=== PATIENT | female | born 1965 | race Caucasian/White ===

== ENCOUNTER 2016-08-26 18:56 | Inpatient (IN) | payer SELFPAY ==
[~2016-08-26] VITALS: Ht 167.6 cm; Wt 65.0 kg
[~2016-08-26 18:56] MED LIST: CALCTAB98 PO; MAGN500T4 PO; SM F10002 PO; TAB-TAB PO; ZINC100T PO
[2016-08-26 19:02] VITALS: BP 161/100; PULSE 120; RESP 16; TEMP 98.8; O2SAT 95
[2016-08-26] MEDS ORDERED: SODIUM CHLOR 0.9% 1000 ML INJ 1,000 ML IV ONE ×2 (19:11→21:45)
[2016-08-26] MEDS ORDERED: SODIUM CHLORIDE 0.9% FLUSH 5 ML FLUSH IVF PRN (19:15)
--- NOTE | 2016-08-26 19:21 | PD ---
HPI Chief Complaint: Seizure Time Seen by Provider: 19:02 Travel History International Travel<30 days: No Contact w/Intl Traveler<30days: No Traveled to known affect area: No History of Present Illness HPI Patient's 50 years old. She was being driven home from work when she suddenly became unresponsive. Tonic activity/rigidity was observed by the otr refrigerated cdl truck driver who pulled over and checked the patient. EMS was activated. On scene, the patient demonstrated altered mentation. On scene she did not know the year. EMS notes tachycardia and hypertension on scene, about 125 and 160/100 upon arrival here. The patient denies similar prior episodes. She offers no specific complaints in the ER. The last thing she remembers is her friend saying "Mable Astorga. " No incontinence of stool or urine. She has no family history of epilepsy. No chest pain palpitation dizziness diaphoresis nausea or shortness of breath accompanied the event. She smokes one half to one pack of cigarettes per day. She drinks 2-3 beers daily. She denies any drug abuse. She denies past medical history surgical history. [facility] Past Medical History Medical History: Denies Significant Hx Diminished Hearing: No ?: Not Menopausal: Yes Past Surgical History Appendectomy: Yes Section: Yes (x2) Social History Alcohol Use: Yes (4-5 DRINKS PER DAY) Tobacco Use: Yes (1 PPD) Substance Use: No Allergies-Medications (Allergen,Severity, Reaction): Coded Allergies: No Known Allergies (Unverified , 08/26/16) Reported Meds & Prescriptions Reported Meds & Active Scripts Active No Active Prescriptions or Reported Medications Review of Systems Except as stated in HPI: all other systems reviewed are Neg General / Constitutional: No: Fever, Chills Cardiovascular: No: Chest Pain or Discomfort, Palpitations, Diaphoresis Respiratory: No: Shortness of Breath Genitourinary: No: Incontinence Physical Exam Narrative GENERAL: 50-year-old female pleasant and speaking full sentences well-nourished well-developed SKIN: Warm and dry. HEAD: Atraumatic. Normocephalic. No evidence skull base fracture. EYES: Pupils equal and round. No scleral icterus. No injection or drainage. ENT: No nasal bleeding or discharge. Mucous membranes pink and moist. Cerumen in the right ear. Left tympanic membrane pink with clear visualization of bony landmarks and no air-fluid level. NECK: Trachea midline. No JVD. CARDIOVASCULAR: Regular rate and rhythm. RESPIRATORY: No accessory muscle use. Clear to auscultation. Breath sounds equal bilaterally. GASTROINTESTINAL: Mildly prominent with tenderness or hepatomegaly. MUSCULOSKELETAL: Extremities without clubbing, cyanosis, or edema. No obvious deformities. NEUROLOGICAL: Speech is normal. No dysmetria. The patient was unable to state the month of the year. She could correctly state that the year is 2016. She knew there are 10 dimes in a dollar. CN grossly preserved. PSYCHIATRIC: Appropriate mood and affect; insight and judgment normal. Data Data Last Documented VS Vital Signs Date Time Temp Pulse Resp B/P Pulse Ox O2 Delivery O2 Flow Rate FiO2 08/26/16 19:38 18 95 Room Air 08/26/16 19:02 98.8 120 161/100 Tachycardia/htn observed Orders Complete Blood Count With Diff (08/26/16 19:11) Alcohol (Ethanol) (08/26/16 19:11) Drug Screen, Random Urine (08/26/16 19:11) Electrocardiogram (08/26/16 ) Ct Brain W/O Iv Contrast(Rout) (08/26/16 ) Ecg Monitoring (08/26/16 19:11) Iv Access Insert/Monitor (08/26/16 19:11) Oximetry (08/26/16 19:11) Comprehensive Metabolic Panel (08/26/16 19:11) Sodium Chlor 0.9% 1000 Ml Inj (Ns 1000 M (08/26/16 19:11) Sodium Chloride 0.9% Flush (Ns Flush) (08/26/16 19:15) Ua Includes Microscopic (08/26/16 19:11) Potassium Chloride (Kcl) (08/26/16 21:30) Lorazepam Inj (Ativan Inj) (08/26/16 21:45) Sodium Chlor 0.9% 1000 Ml Inj (Ns 1000 M (08/26/16 21:45) Admit Order (Ed Use Only) (08/26/16 22:10) Admit To Inpatient (08/26/16 ) Vital Signs (Adult) Q4H (08/26/16 22:12) Neuro Checks Q4H (08/26/16 22:12) Activity Oob With Assistance (08/26/16 22:12) Pigment Making Supervisor / Telemetry .CONTINUOUS (08/26/16 22:12) Diet Regular Basic (08/27/16 Breakfast) Sodium Chloride 0.9% Flush (Ns Flush) (08/26/16 22:15) Sodium Chloride 0.9% Flush (Ns Flush) (08/27/16 09:00) Comprehensive Metabolic Panel (08/27/16 06:00) Complete Blood Count With Diff (08/27/16 06:00) Case Management Consult (08/26/16 22:12) Scd Bilateral/Knee High KEVIN.BID (08/26/16 22:12) Naloxone Inj (Narcan Inj) (08/26/16 22:15) Inpatient Certification (08/26/16 ) Labs Laboratory Tests Test 08/26/16 08/26/16 19:10 20:30 White Blood Count 7.7 TH/MM3 Red Blood Count 3.92 MIL/MM3 Hemoglobin 12.5 GM/DL Hematocrit 36.2 % Mean Corpuscular Volume 92.4 FL Mean Corpuscular Hemoglobin 31.9 PG Mean Corpuscular Hemoglobin 34.5 % Concent Red Cell Distribution Width 14.4 % Platelet Count 85 TH/MM3 Mean Platelet Volume 10.8 FL Neutrophils (%) (Auto) 73.5 % Lymphocytes (%) (Auto) 13.0 % Monocytes (%) (Auto) 12.4 % Eosinophils (%) (Auto) 0.3 % Basophils (%) (Auto) 0.8 % Neutrophils # (Auto) 5.7 TH/MM3 Lymphocytes # (Auto) 1.0 TH/MM3 Monocytes # (Auto) 1.0 TH/MM3 Eosinophils # (Auto) 0.0 TH/MM3 Basophils # (Auto) 0.1 TH/MM3 CBC Comment AUTO DIFF Differential Comment AUTO DIFF CONFIRMED Platelet Estimate LOW Platelet Morphology Comment NORMAL Sodium Level 140 MEQ/L Potassium Level 2.5 MEQ/L Chloride Level 108 MEQ/L Carbon Dioxide Level 16.6 MEQ/L Anion Gap 15 MEQ/L Blood Urea Nitrogen 5 MG/DL Creatinine 0.94 MG/DL Estimat Glomerular Filtration 64 ML/MIN Rate Random Glucose 142 MG/DL Calcium Level 7.7 MG/DL Total Bilirubin 2.4 MG/DL Aspartate Amino Transf 122 U/L (AST/SGOT) Alanine Aminotransferase 36 U/L (ALT/SGPT) Alkaline Phosphatase 166 U/L Total Protein 7.3 GM/DL Albumin 3.0 GM/DL Ethyl Alcohol Level LESS THAN 3 MG/DL Urine Color YELLOW Urine Turbidity HAZY Urine pH 6.5 Urine Specific [place] 1.014 Urine Protein 30 mg/dL Urine Glucose (UA) NEG mg/dL Urine Ketones NEG mg/dL Urine Occult Blood SMALL Urine Nitrite NEG Urine Bilirubin NEG Urine Urobilinogen 2.0 MG/DL Urine Leukocyte Esterase TRACE Urine RBC 1 /hpf Urine WBC 3 /hpf Urine Squamous Epithelial 2 /hpf Cells Urine Bacteria OCC /hpf Urine Hyaline Casts 23 /lpf Urine Granular Casts 15 /lpf Urine Mucus FEW /lpf Microscopic Urinalysis Comment CULT NOT INDICATED Urine Opiates Screen NEG Urine Barbiturates Screen NEG Urine Amphetamines Screen NEG Urine Benzodiazepines Screen NEG Urine Cocaine Screen NEG Urine Cannabinoids Screen POS MDM Medical Decision Making Medical Screen Exam Complete: Yes Emergency Medical Condition: Yes Medical Record Reviewed: Yes Differential Diagnosis seizure, syncope, drug abuse, arrhythmia, electrolyte imbalance, intracranial mass/lesion Narrative Course CBC & BMP Diagram 08/26/16 19:[address] normal EKG reveals sinus tachycardia at 125 normal axis and intervals 60 mEq oral potassium given. 1 mg IV Ativan given along with a second liter of normal saline. Last drink was yesterday. The patient does appear mildly tremulous. Perhaps this may reflect alcohol withdrawal syndrome. d/w Dr Coley. Diagnosis Primary Impression: Seizure Additional Impressions: Hypokalemia Alcohol withdrawal Qualified Code: F10.239 - Alcohol withdrawal, with unspecified complication Admitting Information Admitting Physician Requests: Observation Scripts No Active Prescriptions or Reported Meds Abisai Chamorro MD Aug 26, 2016 19:21
[2016-08-26 19:38] VITALS: RESP 18; O2SAT 95
--- NOTE | 2016-08-26 19:44 | RADRPT ---
EXAM DATE/TIME: 08/26/2016 19:34 [place] COMPARISON: No previous studies available for comparison. INDICATIONS : Unrepsonsive today. RADIATION DOSE: 38.92 CTDIvol (mGy) MEDICAL HISTORY : None SURGICAL HISTORY : None. ENCOUNTER: Initial ACUITY: 1 day PAIN SCALE: 0/10 LOCATION: cranial TECHNIQUE: Multiple contiguous axial images were obtained of the head. Using automated exposure control and adj ustment of the mA and/or kV according to patient size, radiation dose was kept as low as reasonably a chievable to obtain optimal diagnostic quality images. FINDINGS: CEREBRUM: The ventricles are normal for age. No evidence of midline shift, mass lesion, hemorrhage or acute in farction. No extra-axial fluid collections are seen. POSTERIOR FOSSA: The cerebellum and brainstem are intact. The 4th ventricle is midline. The cerebellopontine angle i s unremarkable. EXTRACRANIAL: The visualized portion of the orbits is intact. SKULL: The calvaria is intact. No evidence of skull fracture. CONCLUSION: Negative noncontrast head CT. Jamie Lind MD on August 26, 2016 at 19:43 Board Certified Radiologist. This report was verified electronically.
[2016-08-26 20:14] LABS: AUTOMATED NEUTROPHIL # 5.7 TH/MM3 (1.8-7.7); BASOPHIL # 0.1 TH/MM3 (0-0.2); BASOPHIL % 0.8 % (0.0-2.0); EOSINOPHIL % 0.3 % (0.0-4.0); HEMATOCRIT 36.2 % (35.0-46.0); MEAN CELL VOLUME 92.4 FL (80.0-100.0); MEAN CORPUSCULAR HEMOGLOBIN 31.9 PG (27.0-34.0); MEAN CORPUSCULAR HGB CONC 34.5 % (32.0-36.0); MONO % 12.4 % (0.0-8.0); NEUT % 73.5 % (16.0-70.0); PLATELET COUNT 85 TH/MM3 (150-450); RED BLOOD COUNT 3.92 MIL/MM3 (4.00-5.30); RED CELL DISTRIBUTION WIDTH 14.4 % (11.6-17.2); WHITE BLOOD COUNT 7.7 TH/MM3 (4.0-11.0)
[2016-08-26 20:22] LABS: HEMO FLAGS AUTO DIFF
[2016-08-26 20:47] LABS: BACTERIA, URINE OCC /hpf; BLOOD, URINE SMALL (NEG); COMMENT (UR) CULT NOT INDICATED; GLUCOSE,URINE NEG (NEG); GRANULAR CAST, URINE 15 /lpf; HYALINE CAST, URINE 23 /lpf (RARE); KETONE, URINE NEG (NEG); MUCUS URINE FEW /lpf (OCC); NITRITE,URINE NEG (NEG); PH, URINE 6.5 (5.0-8.5); SQUAMOUS EPITHELIAL CELL URINE 2 /hpf (0-5); URINE COLOR YELLOW (YELLW/STRAW)
[2016-08-26 20:52] LABS: AMPHETAMINE, URINE NEG (NEG); BARBITURATES, URINE NEG (NEG); COCAINE, URINE NEG (NEG)
[2016-08-26 20:55] LABS: PLATELET ESTIMATE SMEAR LOW (NORMAL); PLATELET MORPHOLOGY NORMAL (NORMAL); SCAN/DIFF AUTO DIFF CONFIRMED
[2016-08-26 21:02] LABS: ALKALINE PHOSPHATASE 166 U/L (45-117); ALT (GPT) 36 U/L (10-53); ANION GAP 15 MEQ/L (5-15); AST (GOT) 122 U/L (15-37); BICARBONATE 16.6 MEQ/L (21.0-32.0); BLOOD UREA NITROGEN 5 MG/DL (7-18); CHLORIDE 108 MEQ/L (98-107); GLOMERULAR FILTRATION RATE 64 ML/MIN (>89); SODIUM (NA) 140 MEQ/L (136-145); TOTAL BILIRUBIN ADULT 2.4 MG/DL (0.2-1.0)
[2016-08-26 21:07] LABS: POTASSIUM 2.5 MEQ/L (3.5-5.1)
[2016-08-26] MEDS ORDERED: POTASSIUM CHLORIDE 20 MEQ CONTROLLED RELEASE TAB PO ONE (21:30)
[2016-08-26] MEDS ORDERED: LORazepam 2 MG/ML VIAL IV PUSH ONE (21:45)
[2016-08-26] MEDS ORDERED: LORazepam 2 MG/ML VIAL IV PUSH PRN (22:15)
[2016-08-26] MEDS ORDERED: SODIUM CHLORIDE 0.9% FLUSH 5 ML FLUSH FLUSH PRN (22:15)
[2016-08-26] MEDS ORDERED: NALOXONE HCL 0.4 MG/ML AMP IV PRN (22:15)
[2016-08-26] MEDS ORDERED: chlordiazePOXIDE 25 MG CAP PO ONE (22:15)
[2016-08-26] MEDS ORDERED: THIAMINE HCL 100 MG TAB PO ONE (22:15)
--- NOTE | 2016-08-26 22:29 | EKG ---
Date Performed: 08/26/2016 Time Performed: 19:22:52 PTAGE: 50 years EKG: SINUS TACHYCARDIA ABNORMAL RHYTHM ECG NO PREVIOUS TRACING DOCTOR: Pierre Chamorro Interpretating Date/Time 08/26/2016 22:28:06
[2016-08-26 23:00] VITALS: BP 143/84; PULSE 101; RESP 16; O2SAT 95
[2016-08-26] MEDS: POTASSIUM CHLOR 20 MEQ PREMIX 100 ML IV SCH (23:08)
[2016-08-27 00:07] LABS: MAGNESIUM 1.1 MG/DL (1.5-2.5)
[2016-08-27 00:09] LABS: POTASSIUM 2.5 MEQ/L (3.5-5.1)
[2016-08-27 00:27] VITALS: BP 133/84; PULSE 101; RESP 20; TEMP 98; O2SAT 95
[2016-08-27] MEDS ORDERED: MAGNESIUM SULFATE 1 GM PREMIX 100 ML IV SCH (01:30)
[2016-08-27] MEDS: POTASSIUM CHLOR 20 MEQ PREMIX 100 ML IV SCH (01:43)
[2016-08-27 03:16] LABS: MAGNESIUM 1.4 MG/DL (1.5-2.5); POTASSIUM 3.5 MEQ/L (3.5-5.1)
--- NOTE | 2016-08-27 04:15 | HHI.HP ---
[facility]ician No Primary Care Physician Admission Diagnosis AMS, Poss Sz, HypoK, Poss EtOH WD Diagnoses: (1) Seizure (2) Alcohol withdrawal (3) Hypokalemia (4) Hypomagnesemia (5) Tobacco abuse (6) Alcohol abuse Chief Complaint: Seizure activity Travel History International Travel<30 Days: No Contact w/Intl Traveler <30 Da: No Traveled to Known Affected Are: No History of Present Illness Ms. Lisa is a 50 year-old female with no significant past medical history who was being driven home from work when she suddenly became unresponsive and had what looked like seizure activity to the national van truck driver of the car. EMS was alerted and the patient had altered mentation; did not know what year was. The patient reports that she normally drinks about 6-7 beers daily. She had not had a drink in 2 days prior to this episode. She denies any recent illness , dizziness, fever, fatigue, chest pain, shortness of breath, palpitations, abdominal pain, nausea, vomiting, diarrhea, black or tarry stool, hematuria, or dysuria. She denies hypertension, diabetes mellitus, heart problems, lung problems, liver or kidney problems, thyroid problems, seizures, cancers, problems with blood clots such as colon DVT, PE, or CVA. Head CT was normal. Urine toxicology positive for cannabinoids only. Blood alcohol was less than 3. Potassium was low at 2.5. Later a magnesium level was drawn which was also low at 1.1. LFTs were elevated with total bilirubin of 2.4 , AST of 122, and ALT 36. . Review of Systems Except as stated in HPI: all other systems reviewed are Neg Past Family Social History Past Medical History Tobacco abuse Alcohol abuse . Past Surgical History Appendectomy 2 . Reported Medications Reported Meds & Active Scripts Active No Active Prescriptions or Reported Medications . Allergies: Coded Allergies: No Known Allergies (Unverified , 08/26/16) Active Ordered Medications Current Medications Sodium Chloride (NS 1000 ml Inj) 1,000 ml @ 1,000 mls/hr Q1H ONCE IV Last administered on 08/26/16t 19:52; Start 08/26/16 at 19:11; Stop 08/26/16 at 20:10 ; Status DC IV Flush (NS Flush) 2 ml UNSCH PRN IVF FLUSH AFTER USING IV ACCESS Last administered on 08/26/16 21:51; Start 08/26/16 at 19:15; Stop 08/26/16 at 22:31 ; Status DC Potassium Chloride (KCl) 60 meq ONCE ONCE PO Last administered on 08/26/16 21 :50; Start 08/26/16 at 21:30; Stop 08/26/16 at 21:31; Status DC Lorazepam 1 mg 1 mg ONCE ONCE IV PUSH Last administered on 08/26/16 21:51; Start 08/26/16 at 21:45; Stop 08/26/16 at 21:46; Status DC Sodium Chloride (NS 1000 ml Inj) 1,000 ml @ 999 mls/hr BOLUS ONCE IV Last administered on 08/26/16 21:50; Start 08/26/16 at 21:45; Stop 08/26/16 at 22:45 ; Status DC IV Flush (NS Flush) 2 ml UNSCH PRN FLUSH FLUSH AFTER USING IV ACCESS; Start at 22:15 IV Flush (NS Flush) 2 ml BID FLUSH ; Start 08/27/16 at 09:00 Naloxone HCl (Narcan Inj) 0.4 mg UNSCH PRN IV SEE LABEL COMMENTS; Start at 22:15 Lorazepam (Ativan Inj) 1 mg Q2H PRN IV PUSH withdrawal symptoms/ seizures; Start 08/26/16 at 22:15 Chlordiazepoxide (Librium) 25 mg TID PO ; Start 08/27/16 at 09:00 Chlordiazepoxide (Librium) 25 mg ONCE ONCE PO Last administered on 08/26/16 23:07; Start 08/26/16 at 22:15; Stop 08/26/16 at 22:30; Status DC Thiamine HCl (Vitamin B1) 100 mg ONCE ONCE PO Last administered on 08/26/16 23:07; Start 08/26/16 at 22:15; Stop 08/26/16 at 22:30; Status DC Thiamine HCl 100 mg 100 mg DAILY PO ; Start 08/27/16 at 09:00 Potassium Chloride 100 ml @ 50 mls/hr Q2H IV Last administered on 08/27/16 01 :43; Start 08/26/16 at 22:30; Stop 08/27/16 at 02:29; Status DC Magnesium Sulfate/ Dextrose (Magnesium Sulfate 1 Gm Premix) 100 ml @ 100 mls/ hr Q1H IV Last administered on 08/27/16 04:05; Start 08/27/16 at 01:30; Stop 08/27/16 at 03:29; Status DC . Family History Two brothers with diabetes mellitus . Social History Tobacco: smokes 2/3 pack of cigarettes per day Alcohol: drinks 6-7 beers daily Illicit Drugs: denies . Physical Exam Vital Signs Vital Signs Date Time Temp Pulse Resp B/P Pulse Ox O2 Delivery O2 Flow Rate FiO2 08/27/16 00:27 98.0 101 20 133/84 95 08/26/16 23:00 101 16 143/84 95 Room Air 08/26/16 19:38 18 95 Room Air 08/26/16 19:02 98.8 120 16 161/100 95 Physical Exam GENERAL: This is a female patient who appears older than stated age, she is tremulous throughout visit. SKIN: No rashes, ecchymoses or lesions. Cool and dry. HEAD: Atraumatic. Normocephalic. EYES: No scleral icterus. No injection or drainage. ENT: Nose without bleeding, purulent drainage. NECK: Trachea midline. No JVD or lymphadenopathy. CARDIOVASCULAR: Regular rate and rhythm without murmurs, gallops, or rubs. RESPIRATORY: Clear to auscultation. Breath sounds equal bilaterally. No wheezes , rales, or rhonchi. GASTROINTESTINAL: Abdomen soft, non-tender, nondistended. No guarding. MUSCULOSKELETAL: Extremities without clubbing, cyanosis, or edema. No calf tenderness. NEUROLOGICAL: Awake and alert. Patient is tremulous throughout visit. Normal speech. . Laboratory Laboratory Tests Test 08/26/16 08/26/16 08/27/16 19:10 20:30 02:29 White Blood Count 7.7 Red Blood Count 3.92 Hemoglobin 12.5 Hematocrit 36.2 Mean Corpuscular Volume 92.4 Mean Corpuscular Hemoglobin 31.9 Mean Corpuscular Hemoglobin 34.5 Concent Red Cell Distribution Width 14.4 Platelet Count 85 Mean Platelet Volume 10.8 Neutrophils (%) (Auto) 73.5 Lymphocytes (%) (Auto) 13.0 Monocytes (%) (Auto) 12.4 Eosinophils (%) (Auto) 0.3 Basophils (%) (Auto) 0.8 Neutrophils # (Auto) 5.7 Lymphocytes # (Auto) 1.0 Monocytes # (Auto) 1.0 Eosinophils # (Auto) 0.0 Basophils # (Auto) 0.1 CBC Comment AUTO DIFF Differential Comment AUTO DIFF CONFIRMED Platelet Estimate LOW Platelet Morphology Comment NORMAL Sodium Level 140 Potassium Level 2.5 3.5 Chloride Level 108 Carbon Dioxide Level 16.6 Anion Gap 15 Blood Urea Nitrogen 5 Creatinine 0.94 Estimat Glomerular Filtration 64 Rate Random Glucose 142 Calcium Level 7.7 Total Bilirubin 2.4 Aspartate Amino Transf 122 (AST/SGOT) Alanine Aminotransferase 36 (ALT/SGPT) Alkaline Phosphatase 166 Total Protein 7.3 Albumin 3.0 Ethyl Alcohol Level LESS THAN 3 Magnesium Level 1.1 1.4 Urine Color YELLOW Urine Turbidity HAZY Urine pH 6.5 Urine Specific [place] 1.014 Urine Protein 30 Urine Glucose (UA) NEG Urine Ketones NEG Urine Occult Blood SMALL Urine Nitrite NEG Urine Bilirubin NEG Urine Urobilinogen 2.0 Urine Leukocyte Esterase TRACE Urine RBC 1 Urine WBC 3 Urine Squamous Epithelial 2 Cells Urine Bacteria OCC Urine Hyaline Casts 23 Urine Granular Casts 15 Urine Mucus FEW Microscopic Urinalysis Comment CULT NOT INDICATED Urine Opiates Screen NEG Urine Barbiturates Screen NEG Urine Amphetamines Screen NEG Urine Benzodiazepines Screen NEG Urine Cocaine Screen NEG Urine Cannabinoids Screen POS Result Diagram: 08/26/16 1910 08/27/16 0229 Imaging Last Impressions Head CT 08/26/16 0000 Signed Impressions: Service Date/Time: Friday, August 26, 2016 19:34 - CONCLUSION: Negative noncontrast head CT. Jamie Lind MD . Assessment and Plan Problem List: (1) Seizure ICD Code: R56.9 Status: Acute (2) Alcohol withdrawal ICD Code: F10.239 Status: Acute (3) Hypokalemia ICD Code: E87.6 Status: Acute (4) Hypomagnesemia ICD Code: E83.42 Status: Acute (5) Tobacco abuse ICD Code: Z72.0 Status: Chronic (6) Alcohol abuse ICD Code: F10.10 Status: Chronic Assessment and Plan Seizure activity suspect related to alcohol withdrawal - Neuro checks every 4 hours - Vital signs every 4 hours - Seizure precautions - Ativan 1 mg IV every 2 hours as needed for withdrawal symptoms and/or seizures Hypokalemia - Initial potassium 2.5 - Replaced P.O. and IV - Recheck potassium every 4 hours until normalized - Continuous cardiac telemetry to monitor for arrhythmias Hypomagnesemia - Initial magnesium 1.1 - Replaced IV - Recheck magnesium every 4 hours until normalized LFTs elevated - likely secondary to alcohol abuse - Recheck LFTs in a.m. - Expect these should return to normal while patient is in hospital Alcohol withdrawal - Thiamine 100 mg by mouth daily - Librium 25 mg 3 times a day - Ativan 1 mg IV every 2 hours as needed for withdrawal symptoms and/or seizures Alcohol abuse - Counseled regarding deleterious health consequences associated with alcohol abuse - Counseled regarding cessation and need to taper off alcohol, not stop abruptly without medical assistance Tobacco abuse - Counseled regarding deleterious health consequences associated with tobacco abuse - Counseled regarding cessation DVT prophylaxis - SCDs Written by Shila Cool, acting as scribe for Dr. Coley on 08/27/16 at 04:14. The documentation accurately reflects the work performed [id number] by me on at 0414 Discussed Condition With ER physician, patient, and RN Physician Certification 2 Midnight Certification Type: Admission for Inpatient Services Order for Inpatient Services The services are ordered in accordance with Medicare regulations or non- Medicare payer requirements, as applicable. In the case of services not specified as inpatient-only, they are appropriately provided as inpatient services in accordance with the 2-midnight benchmark. Estimated LOS (days): 3 days is the estimated time the patient will need to remain in the hospital, assuming treatment plan goals are met and no additional complications. Post-Hospital Plan: Not yet determined Problem Qualifiers (1) Alcohol withdrawal: Qualified Code: F10.239 - Alcohol withdrawal, with unspecified complication Shila Cool Aug 27, 2016 04:15 Garcia Coley MD Sep 03, 2016 08:43
[2016-08-27 04:52] VITALS: BP 120/66; PULSE 89; RESP 20; TEMP 97.6; O2SAT 95
[2016-08-27 07:33] VITALS: BP 125/92; PULSE 103; RESP 18; TEMP 98.9; O2SAT 97
[2016-08-27 08:01] LABS: AUTOMATED NEUTROPHIL # 3.6 TH/MM3 (1.8-7.7); BASOPHIL % 0.6 % (0.0-2.0); EOSINOPHIL % 0.5 % (0.0-4.0); HEMATOCRIT 33.5 % (35.0-46.0); LYMPHOCYTE # 1.6 TH/MM3 (1.0-4.8); MEAN CELL VOLUME 91.9 FL (80.0-100.0); MEAN CORPUSCULAR HEMOGLOBIN 31.3 PG (27.0-34.0); MEAN CORPUSCULAR HGB CONC 34.1 % (32.0-36.0); MONO % 11.8 % (0.0-8.0); NEUT % 60.1 % (16.0-70.0); PLATELET COUNT 59 TH/MM3 (150-450); RED BLOOD COUNT 3.64 MIL/MM3 (4.00-5.30); RED CELL DISTRIBUTION WIDTH 14.4 % (11.6-17.2); WHITE BLOOD COUNT 5.9 TH/MM3 (4.0-11.0)
[2016-08-27 08:05] LABS: HEMO FLAGS AUTO DIFF
[2016-08-27 08:46] LABS: PLATELET ESTIMATE SMEAR LOW (NORMAL); PLATELET MORPHOLOGY NORMAL (NORMAL); SCAN/DIFF AUTO DIFF CONFIRMED
[2016-08-27] MEDS ORDERED: THIAMINE HCL 100 MG TAB PO SCH (09:00)
[2016-08-27] MEDS ORDERED: SODIUM CHLORIDE 0.9% FLUSH 5 ML FLUSH FLUSH SCH (09:00)
[2016-08-27 09:30] VITALS: PULSE 88
[2016-08-27] MEDS: chlordiazePOXIDE 25 MG CAP PO SCH ×3 (09:58→17:22)
[2016-08-27 10:38] LABS: ALKALINE PHOSPHATASE 168 U/L (45-117); ALT (GPT) 39 U/L (10-53); ANION GAP 11 MEQ/L (5-15); AST (GOT) 131 U/L (15-37); BICARBONATE 20.3 MEQ/L (21.0-32.0); BLOOD UREA NITROGEN 6 MG/DL (7-18); CHLORIDE 105 MEQ/L (98-107); GLOMERULAR FILTRATION RATE 135 ML/MIN (>89); MAGNESIUM 2.2 MG/DL (1.5-2.5); POTASSIUM 3.5 MEQ/L (3.5-5.1); SODIUM (NA) 136 MEQ/L (136-145); TOTAL BILIRUBIN ADULT 2.4 MG/DL (0.2-1.0)
[2016-08-27] MEDS ORDERED: MAGNESIUM SULFATE 1 GM PREMIX 100 ML IV ONE (10:45)
--- NOTE | 2016-08-27 12:24 | HHI.PR ---
Subjective Remarks Follow up for seizure. The patient admits to drinking alcohol, 6-7 beers a day. Her last drink was on Wednesday 08/23 as she is trying to quit drinking. She started having tremors Wednesday-Wednesday, feeling occasionally nauseous and small episode of vomiting. She was then going home from work last night when she reportedly had a seizure per the test driver of the car. The patient does not recall exactly what happened. She's never had a seizure before. No further seizure activity overnight. She wants to go home. She plans to "never drink again". Objective Vitals Vital Signs Date Time Temp Pulse Resp B/P Pulse Ox O2 Delivery O2 Flow Rate FiO2 08/27/16 07:33 98.9 103 18 125/92 97 08/27/16 04:52 97.6 89 20 120/66 95 08/27/16 00:27 98.0 101 20 133/84 95 08/26/16 23:00 101 16 143/84 95 Room Air 08/26/16 19:38 18 95 Room Air 08/26/16 19:02 98.8 120 16 161/100 95 Result Diagram: 08/27/16 0742 08/27/16 0742 Imaging Last Impressions Head CT 08/26/16 0000 Signed Impressions: Service Date/Time: Friday, August 26, 2016 19:34 - CONCLUSION: Negative noncontrast head CT. Jamie Lind MD Objective Remarks GENERAL: Well-nourished, well-developed middle aged female patient in [facility]. SKIN: Warm and dry. No rash. HEAD: Normocephalic. Atraumatic. EYES: Pupils equal and round. No scleral icterus. No injection or drainage. ENT: No nasal bleeding or discharge. Mucous membranes pink and moist. NECK: Supple. Trachea midline. CARDIOVASCULAR: Regular rate and rhythm. S1, S2 noted. No murmur appreciated. RESPIRATORY: No accessory muscle use. Clear to auscultation. Breath sounds equal bilaterally. GASTROINTESTINAL: Abdomen soft, non-tender, nondistended. Normoactive bowel sounds x4. MUSCULOSKELETAL: No obvious deformities. Extremities without clubbing, cyanosis , or edema. NEUROLOGICAL: Awake and alert. No obvious cranial nerve deficits. Motor grossly within normal limits. Normal speech. PSYCHIATRIC: Appropriate mood and affect; insight and judgment normal. Medications and IVs Current Medications Medications (Trade) Dose Ordered Sig/Cedrick Route Start Time Stop Time Status Last Admin (NS Flush) 2 ml UNSCH PRN FLUSH 08/26/16 22:15 (NS Flush) 2 ml BID FLUSH 08/27/16 09:00 08/27/16 09:58 (Narcan Inj) 0.4 mg UNSCH PRN IV 08/26/16 22:15 (Ativan Inj) 1 mg Q2H PRN IV PUSH 08/26/16 22:15 08/27/16 04:18 (Librium) 25 mg TID PO 08/27/16 09:00 08/27/16 09:58 (Vitamin B1) 100 mg DAILY PO 08/27/16 09:00 08/27/16 09:00 A/P Problem List: (1) Seizure ICD Code: R56.9 Status: Acute (2) Alcohol withdrawal ICD Code: F10.239 Status: Acute (3) Hypokalemia ICD Code: E87.6 Status: Acute (4) Hypomagnesemia ICD Code: E83.42 Status: Acute (5) Tobacco abuse ICD Code: Z72.0 Status: Chronic (6) Alcohol abuse ICD Code: F10.10 Status: Chronic Assessment and Plan 50-year-old female with hx of alcohol abuse, presents with seizure activity Seizure activity, suspect related to alcohol withdrawal and electrolyte abnormalities - Continue Seizure precautions, Neuro checks, Vital signs - Ativan 1 mg IV every 2 hours as needed for withdrawal symptoms and/or seizures - Check EEG - Consult neurology - Check CPK Hypokalemia - Initial potassium 2.5 - Replaced P.O. and IV - Continuous cardiac telemetry to monitor for arrhythmias - Repeat K improving, currently K 3.3, give additional po replacement Hypomagnesemia - Initial magnesium 1.1 - Replaced IV Mag Sulfate - Repeat mag 2.0, resolved LFTs elevated - likely secondary to alcohol abuse - Repeat LFTs elevated but stable - Liver U/S showed liver morphology and echotexture suggestive of cirrhosis; decreased blood flow in the main portal vein which may be related to portal hypertension; gallbladder filled with stones and sludge, However, no ultrasound findings are present to suggest acute cholecystitis. - Check hepatitis panel - Needs f/up with gastroenterology Alcohol withdrawal - Continue Thiamine 100 mg by mouth daily - Continue Librium 25 mg 3 times a day with plan to taper - Ativan 1 mg IV every 2 hours as needed for withdrawal symptoms and/or seizures Alcohol abuse - Counseled regarding deleterious health consequences associated with alcohol abuse - Counseled regarding cessation and need to taper off alcohol, not stop abruptly without medical assistance - Patient plans to "never drink again" Tobacco abuse - Counseled regarding deleterious health consequences associated with tobacco abuse - Counseled regarding cessation DVT prophylaxis - SCDs Written by Micaela Moreno, acting as scribe for Dr. Love on 08/27/16 at 12:22. Discharge Planning Possible discharge tomorrow. Attending Statement The documentation accurately reflects the work performed [id number] by me, Dr. Love on 08/27/16 at 12:22. Problem Qualifiers (1) Alcohol withdrawal: Qualified Code: F10.239 - Alcohol withdrawal, with unspecified complication Micaela Moreno PA-C Aug 27, 2016 12:24 Warner Love MD Aug 28, 2016 08:58
--- NOTE | 2016-08-27 12:42 | RADRPT ---
EXAM DATE/TIME: 08/27/2016 11:14 [facility] COMPARISON: No previous studies available for comparison. INDICATIONS : Elevated labs. MEDICAL HISTORY : Hypertension. Alcohol abuse. Seizures. Cardiac disorder. Hypokalemia. Hypomagnesemia. SURGICAL HISTORY : Appendectomy. section. ENCOUNTER: Initial ACUITY: 1 day PAIN SCORE: 0/10 LOCATION: Right upper quadrant MEASUREMENTS: LIVER: 18.5 cm length COMMON DUCT: Non-visualized RIGHT KIDNEY: 11.4 x 5.4 x 3.5 cm SPLEEN: 12.9 cm cm length FINDINGS: LIVER: Course and echotexture with mildly nodular contour without focal lesion or ductal dilatation. Main p ortal vein appears patent but with decreased blood flow and possible retrograde blood flow at times. No ascites is visualized. COMMON DUCT: No intraluminal mass or stone visualized. GALLBLADDER: Gallbladder is not fully distended but contains stones and sludge. Sonographic Lopes sign is negativ e. There is no pericholecystic fluid. PANCREAS: The visualized portions are within normal limits. RIGHT KIDNEY: No hydronephrosis, stone or mass. SPLEEN: No focal lesion. CONCLUSION: 1. Liver demonstrates a morphology and echotexture suggestive of cirrhosis. 2. There is decreased blood flow in the main portal vein which may be related to portal hypertension. 3. The gallbladder is filled with stones and sludge. However, no ultrasound findings are present to s uggest acute cholecystitis. Jamie Solares MD on August 27, 2016 at 12:36 Board Certified Radiologist. This report was verified electronically.
[2016-08-27 12:43] LABS: POTASSIUM 3.3 MEQ/L (3.5-5.1)
[2016-08-27] MEDS ORDERED: POTASSIUM CHLORIDE 20 MEQ CONTROLLED RELEASE TAB PO ONE (13:15)
[2016-08-27 14:10] LABS: INTERNATIONAL NORMALIZED RATIO 1.7 RATIO; PROTHROMBIN TIME - PATIENT 18.8 SEC (9.8-11.6)
[2016-08-27 14:22] LABS: MAGNESIUM 1.9 MG/DL (1.5-2.5); POTASSIUM 3.6 MEQ/L (3.5-5.1)
--- NOTE | 2016-08-27 15:34 | MG ---
cc: ESTRELLA AVALOS M.D. Lab No: [id number] Date: Age: 50 Sex: F Race: REFERRING PHYSICIAN: Usama. ROOM: H96. With hyperventilation and photic. Fair effort. Awake. CT negative. New-onset seizure. The patient suddenly became unresponsive. Blood pressure 160/100. A 50-year-old woman with history of ethanol, caffeine and tobacco use. Hypertension. MEDICATIONS: Librium, thiamine, Ativan given on this date. DESCRIPTION OF RECORD: The patient has an overall background rhythm of 8 to 8.5 hertz, 20 to 40 microvolts. Overall symmetrical background. There is quite a bit of movement artifact unfortunately. Eye movement leads coming off. No epileptic discharge is seen. Hyperventilation was then performed. There is more artifact but no attenuation. IMPRESSION: Overall normal EEG despite artifact. No epileptiform features were seen. Clinical correlation. MD ROBIN Fitch/JOSEPH /2:59 PM /3:21 PM
[2016-08-27] MEDS ORDERED: SERTRALINE HCL 50 MG TAB PO SCH (16:00)
[2016-08-27 16:02] VITALS: BP 132/65; PULSE 68; RESP 18; O2SAT 95
--- NOTE | 2016-08-27 16:30 | MB ---
cc: CASSIDANNY DATE OF CONSULTATION: 08/27/2016 HISTORY OF PRESENT ILLNESS A 50-year-old right-handed woman with a history of anxiety, depression, alcoholism, drinks over seven drinks of whiskey a day and is a smoker. She lives with her and then she was coming home from work, talking to her friend and she had what evidently was a grand mal seizure and thus admitted to the hospital. She did have a little bit of a tongue bite with this seizure but never prior. REVIEW OF SYSTEMS Denies any headache, hypertension, diabetes, hypercholesterolemia, IL, CABG, cardiac arrhythmia, renal, hepatic or pulmonary disease, thyroid disease, lupus, ulcer, cancer, seizure or stroke. She has not woken up and wet the bed. No odd smells, tastes or haroon vu. SOCIAL HISTORY She is a smoker, heavy drinker as noted. Lives with her . FAMILY HISTORY Negative for cancer, seizure, stroke. She works in housekeeping. MEDICATION No medicines. ALLERGIES NO KNOWN DRUG ALLERGIES. PHYSICAL EXAMINATION VITAL SIGNS: On exam she has been in sinus rhythm, afebrile, 103, 18, 125/92 to 161/100. NECK: There were no carotid bruits. HEART: Regular rhythm. I do not detect a murmur. Pupils are equal, visual mccormack are full. Extraocular movements intact without nystagmus. Face is symmetric with normal sensation. Tongue was midline. There is no drift. She had normal strength in upper and lower extremities bilaterally. DTRs are 2+ symmetric throughout. Toes are downgoing bilaterally. Pinprick is intact throughout. She is not ataxic on aecrhh-of-azku. Speech is fluent, not aphasic. LABORATORY DATA Urine drug screen positive for marijuana only. Alcohol level was less than 3. UA was negative. Basic metabolic profile, initial potassium was low at 2.5 otherwise BMP is normal. LFT AST was 122 otherwise normal. Albumin 3.0. Coags, INR was 1.7, platelet count is 59,000. IMAGING STUDIES Liver ultrasound suggesting cirrhosis, possible portal hypertension. CAT scan of the brain was normal. She was given some thiamine. EEG was performed and that was normal. IMPRESSION Likely alcohol related seizures. I do want to check an MRI of the brain, however, and a B12 level and her thyroid. If MRI of the brain is negative she could be discharged. I told her she needs to taper off of alcohol. She does have anxiety, depression, we could treat her with some Zoloft for that and that may help her get off the alcohol. MD YARA Meyer/KESHA /3:53 PM /4:04 PM
[2016-08-27 17:42] LABS: CKMB 9.2 NG/ML (0.5-3.6)
--- NOTE | 2016-09-21 21:32 | PD.AMA ---
Against Medical Advice Note Diagnosis: (1) Hypokalemia (2) Hypomagnesemia (3) Seizure (4) Tobacco abuse (5) Alcohol withdrawal (6) Alcohol abuse Discharge Disposition: Against Medical Advice Pt Condition on Discharge: Good Recommended Treatment Course recommend patient seek medical treatment as well as alcohol cessation counseling. AMA Statement Patient Christina Lisa has decided to leave the hospital against medical advice. This patient has the capacity to refuse care and understands the risks of leaving, including permanent disability and/or , and has had an opportunity to ask questions about her condition. The patient has been informed that she may return for care at any time, and follow up has been arranged/ advised. Warner Love MD Sep 21, 2016 21:32
== END 2016-08-27 18:48 | disposition home or self-care (01) | DRG 101 ==
LOC: NEPC 18:56 → NEDH 22:13 → OBSVTOIN 22:13 → NEPHCDU 08-27 00:23
PROVIDERS: ADMIT Internal Medicine; ATTEND Internal Medicine
DX: G40.409 Other generalized epilepsy and epileptic syndromes, not intractable, without status epilepticus (principal); E83.42 Hypomagnesemia; F10.239 Alcohol dependence with withdrawal, unspecified; E87.6 Hypokalemia; F17.210 Nicotine dependence, cigarettes, uncomplicated; F41.9 Anxiety disorder, unspecified; F32.9 Major depressive disorder, single episode, unspecified
CPT/HCPCS: 70450; 76705; 80053; 80074; 80307; 80320; 81001; 82550; 82552; 82607; 83735; 84132; 84443; 84702; 85025; 85610; 85652; 93005; 95819; 96361; 96374; J2060; J3475; J3480; J7030

== ENCOUNTER 2017-02-01 17:27 | Inpatient (IN) | payer SELFPAY ==
[~2017-02-01] VITALS: Ht 165.1 cm; Wt 68.0 kg
[2017-02-01] VITALS (22 sets, daily range): BP systolic 63–143; BP diastolic 26–86; PULSE 96–110; RESP 22–28; TEMP 97.4–97.5; O2SAT 90–99
--- NOTE | 2017-02-01 17:38 | PD ---
HPI Chief Complaint: SYNCOPE Time Seen by Provider: 17:31 Travel History International Travel<30 days: No Contact w/Intl Traveler<30days: No Traveled to known affect area: No History of Present Illness HPI EMS PICKED UP PATIENT FROM PRIVATE RESIDENCE WHERE HER ROOMMATES STATED SHE COLLAPSED TO GROUND AFTER STANDING AND THAT HER BODY "SHOOK LIKE A SEIZURE". EMS FOUND HER HYPOTENSIVE IN 60'S SBP, AND GLUCOSE 37 WITH BGL, GIVEN D50 IV AND IVF. PFSH Past Medical History Cancer: No Cardiovascular Problems: Yes Diminished Hearing: No Endocrine: No Musculoskeletal: No Neurologic: Yes Psychiatric: No Respiratory: No Seizures: Yes (new onset) Menopausal: Yes Past Surgical History Abdominal Surgery: Yes Appendectomy: Yes Section: Yes (x2) Gynecologic Surgery: Yes Social History Alcohol Use: Yes (4-5 DRINKS PER DAY) Tobacco Use: Yes (1 PPD) Substance Use: No Allergies-Medications (Allergen,Severity, Reaction): Coded Allergies: No Known Allergies (Unverified , 02/01/17) Reported Meds & Prescriptions Reported Meds & Active Scripts Active No Active Prescriptions or Reported Medications Review of Systems ROS Limitations: Clinical Condition Except as stated in HPI: all other systems reviewed are Neg Physical Exam Narrative GENERAL: SKIN: Warm and dry. JAUNDICED SKIN THROUGHOUT HEAD: Atraumatic. Normocephalic. EYES: Pupils equal and round. POSITIVE scleral icterus. No injection or drainage. ENT: No nasal bleeding or discharge. Mucous membranes pink and moist. NECK: Trachea midline. No JVD. CARDIOVASCULAR: Regular rate and rhythm. RESPIRATORY: No accessory muscle use. Clear to auscultation. Breath sounds equal bilaterally. GASTROINTESTINAL: Abdomen soft, non-tender, DISTENDED ABD WITH FLUID WAVE POS C/ W ASCITES MUSCULOSKELETAL: Extremities without clubbing, cyanosis, or edema. No obvious deformities. NEUROLOGICAL: Awake and alert. No obvious cranial nerve deficits. Motor grossly within normal limits. Five out of 5 muscle strength in the arms and legs. Normal speech. PSYCHIATRIC: Appropriate mood and affect; insight and judgment normal. Data Data Last Documented VS Vital Signs Date Time Temp Pulse Resp B/P Pulse Ox O2 Delivery O2 Flow Rate FiO2 02/01/17 20:54 107 28 93/52 94 Nasal Cannula 3 02/01/17 18:40 97.5 Orders Norepinephrine Inj (Levophed Inj) (02/01/17 17:42) Electrocardiogram (02/01/17 17:39) Complete Blood Count With Diff (02/01/17 17:39) Comprehensive Metabolic Panel (02/01/17 17:39) Ckmb (Isoenzyme) Profile (02/01/17 17:39) Troponin I (02/01/17 17:39) Prothrombin Time / Inr (Pt) (02/01/17 17:39) Act Partial Throm Time (Ptt) (02/01/17 17:39) Lipase (02/01/17 17:39) Urinalysis - C+S If Indicated (02/01/17 17:39) Chest, Single Ap (02/01/17 17:39) Ct Brain W/O Iv Contrast(Rout) (02/01/17 17:39) Iv Access Insert/Monitor (02/01/17 17:39) Ecg Monitoring (02/01/17 17:39) Oximetry (02/01/17 17:39) Blood Glucose (02/01/17 17:39) Urinary Catheter Insert/Apply (02/01/17 17:39) Drug Screen, Random Urine (02/01/17 17:39) Alcohol (Ethanol) (02/01/17 17:39) Salicylates (Aspirin) (02/01/17 17:39) Tylenol (Acetaminophen) (02/01/17 17:39) Lactic Acid Sepsis Protocol (02/01/17 17:39) Blood Culture (02/01/17 17:39) Sodium Chlor 0.9% 1000 Ml Inj (Ns 1000 M (02/01/17 17:39) Sodium Chlor 0.9% 1000 Ml Inj (Ns 1000 M (02/01/17 17:39) Norepinephrine-Dextrose Drip (Levophed-D (02/01/17 17:45) Dextrose 10% Inj (D10w Inj) (02/01/17 18:15) CKMB (02/01/17 17:38) CKMB% (02/01/17 17:38) Calcium Gluconate Inj (Calcium Gluconate (02/01/17 18:30) ^ Infusion (02/01/17 ) Dopamine Inj Premix (Dopamine Inj Premix (02/01/17 19:30) Terbutaline Inj (Brethine Inj) (02/01/17 19:30) Admit Order (Ed Use Only) (02/01/17 20:57) Labs Laboratory Tests Test 02/01/17 02/01/17 02/01/17 02/01/17 17:38 19:01 20:48 20:50 Prothrombin Time 36.3 SEC Prothromb Time International 3.1 RATIO Ratio Activated Partial 65.0 SEC Thromboplast Time Sodium Level 137 MEQ/L Potassium Level 5.5 MEQ/L Chloride Level 106 MEQ/L Carbon Dioxide Level 6.3 MEQ/L Anion Gap 25 MEQ/L Blood Urea Nitrogen 16 MG/DL Creatinine 2.00 MG/DL Estimat Glomerular Filtration 26 ML/MIN Rate Random Glucose 82 MG/DL Lactic Acid Level 15.6 mmol/L 16.1 mmol/L Calcium Level 6.0 MG/DL Protein Corrected Calcium 7.0 MG/DL Total Bilirubin 6.2 MG/DL Aspartate Amino Transf 191 U/L (AST/SGOT) Alanine Aminotransferase 31 U/L (ALT/SGPT) Alkaline Phosphatase 112 U/L Total Creatine Kinase 1726 U/L Creatine Kinase MB 29.1 NG/ML Creatine Kinase MB % 1.7 % Troponin I 0.02 NG/ML Total Protein 5.0 GM/DL Albumin 1.3 GM/DL Lipase 136 U/L Acetaminophen Level LESS THAN 2.0 MCG/ML Ethyl Alcohol Level LESS THAN 3 MG/DL White Blood Count 14.6 TH/MM3 Red Blood Count 2.21 MIL/MM3 Hemoglobin 7.1 GM/DL Hematocrit 21.6 % Mean Corpuscular Volume 97.8 FL Mean Corpuscular Hemoglobin 32.0 PG Mean Corpuscular Hemoglobin 32.7 % Concent Red Cell Distribution Width 18.2 % Platelet Count 91 TH/MM3 Mean Platelet Volume 10.2 FL Neutrophils (%) (Auto) 79.3 % Lymphocytes (%) (Auto) 16.6 % Monocytes (%) (Auto) 2.6 % Eosinophils (%) (Auto) 0.7 % Basophils (%) (Auto) 0.8 % Neutrophils # (Auto) 11.6 TH/MM3 Lymphocytes # (Auto) 2.4 TH/MM3 Monocytes # (Auto) 0.4 TH/MM3 Eosinophils # (Auto) 0.1 TH/MM3 Basophils # (Auto) 0.1 TH/MM3 CBC Comment AUTO DIFF Differential Total Cells 100 Counted Neutrophils % (Manual) 64 % Band Neutrophils % 10 % Lymphocytes % 11 % Monocytes % 5 % Eosinophils % 1 % Basophils % 1 % Neutrophils # (Manual) 12.0 TH/MM3 Metamyelocytes 7 % Myelocytes 1 % Differential Comment FINAL DIFF MANUAL Toxic Vacuolation PRESENT Platelet Estimate NORMAL Platelet Morphology Comment ENLARGED Urine Color YELLOW Urine Turbidity CLOUDY Urine pH 5.5 Urine Specific [place] 1.010 Urine Protein 100 mg/dL Urine Glucose (UA) NEG mg/dL Urine Ketones NEG mg/dL Urine Occult Blood LARGE Urine Nitrite NEG Urine Bilirubin NEG Urine Leukocyte Esterase NEG Urine RBC 20-24 /hpf Urine WBC 6-8 /hpf Urine Squamous Epithelial 0-5 /hpf Cells Urine Renal Epithelial Cells 0-5 /hpf Urine Bacteria MOD /hpf Urine Hyaline Casts 0-2 /lpf Urine Fine Granular Casts 3-5 /lpf Microscopic Urinalysis Comment CULTURE INDICATED Urine Opiates Screen NEG Urine Barbiturates Screen NEG Urine Amphetamines Screen NEG Urine Benzodiazepines Screen NEG Urine Cocaine Screen NEG Urine Cannabinoids Screen NEG MDM Medical Decision Making Medical Screen Exam Complete: Yes Emergency Medical Condition: Yes Medical Record Reviewed: Yes Differential Diagnosis AMS V HEPATIC ENCEPHALOPATHY V POSTICTAL SEIZURE V WITHDRAWAL SEIZURE V ICH V HYPOGLYCEMIC Narrative Course PATIENT IMMEDIATELY HAD 2 IV PLACED, IVF GIVEN, AND ORDERED PRESSORS TO MAINTAIN BP. FULL WORKUP TO CONTINUE...PATIENT ENDED UP REQUIRING CENTRAL LINE PLACEMENT BECAUSE OF PLETHORA OF TREATMENT ADJUNCTS NEEDED (CALCIUM IV REPLACEMENT, DEXTROSE REPLACEMENT, LEVOPHED AND DOPAMINE PRESSOR THERAPY, 2L NS BOLUS GIVEN, CEFEPIME AND VANCOX1 ABX DOSING WELL) NOW SBP IS IN 100 SYTOLIC IMPROVED FROM 70'S, URINE OUTPUT IS FINALLY BEEN NOTED ON SALCEDO 2 HRS AFTER SALCEDO PLACEMENT.....CASE D/W DR BEE BLOCK AND CASE MAKER [place] [facility] [place]. PATIENT CONTINUES TO GUARD HER AIRWAY AND THUS NO NEED TO INTUBATE AT THIS POINT BUT PATIENT IS IN CRITICAL CONDITION AND HAS VERY POOR RESERVES DUE TO ENDSTAGE CIRRHOSIS...AT TIME EMS CAME AND TRANSFERRED PATIENT, UNABLE TO GET BP AND MORE AGONAL RESPIRATIONS, STARTED PREPARING FOR POSSIBLE CODE WHEN PATIENT BECAME PULSELESS...CPR STARTED, INTUBATED BY ME (DURING INTUBATION HEMATEMESIS OCCURRED USED SUCTION PRIOR TO INTUBATION), GIVEN ACLS PROTOCOL AND GOT ROSC BUT NOW PATIENT WAS MORIBUND AND NOT RESPONSIVE OR REACTIVE PUPILS, ALSO BECAME MOTTLED ADVISED OF RESULTS, HE WISHES FOR FULL CODE TO CONTINUE. MAX DOPA, MAX LEVOPHED, AC VENT SETTINGS. GCS 3T, AND STARTED ON EPI DRIP Critical Care Narrative CRITICAL CARE NOTE: With evaluation of the patient, labs, EKG, receipt of radiologic studies, administration of medications, reevaluation the patient and discussion of the patient with the admitting physicians, the total critical care time was [90] minutes. Time to perform other separately billable procedures was not included in the critical care time. Procedures Procedure Narrative The patient was put in optimal position for the procedure. PATIENT CODING, NO RSI NEEDED. The patient was intubated with a [7.5] cuffed endotracheal tube. Tube placement was confirmed by visualization of the tube and balloon passing through the cords, capnometry. Breath sounds were equal and well aerated bilaterally postintubation. No breath sounds over stomach. After the risks and benefits were discussed the following procedure was performed: CENTRAL VENOUS LINE: The site was prepped with Betadine and sterilely draped. It was infiltrated with 1% lidocaine plain. The deep vein was cannulated using normal Seldinger technique. A central line was placed in the [RIGHT FEMORAL] site and secured with simple interrupted suture. The site was sterilely dressed. The patient tolerated the procedure well. Sepsis Criteria SIRS Criteria (2 or more): WBC > 90161, < 4000 or > 10% bands Severe Sepsis (+one): Lactate >2, Acute Oliguria/Renal Failure Septic Shock Criteria: Unresponsive to 30ml/kg fluid bolus, Lactic acid >=4 Physician Communication Physician Communication DR BEE BLOCK AND CASE MAKER TO FOLLOW AND PROVIDE FURTHER CARE Diagnosis Primary Impression: SYNCOPE Additional Impressions: SEPTIC SHOCK HYPOGLYCEMIA HYPOCALCEMIA S/P CARDIAC AR Admitting Information Admitting Physician Requests: Admit Scripts No Active Prescriptions or Reported Meds Condition: Critical Marvel Solorio MD Feb 01, 2017 17:38
[2017-02-01] MEDS ORDERED: SODIUM CHLOR 0.9% 1000 ML INJ 800 ML IV ONE (17:39)
[2017-02-01] MEDS ORDERED: SODIUM CHLOR 0.9% 1000 ML INJ 1,000 ML IV ONE (17:39)
[2017-02-01] MEDS ORDERED: NOREPINEPHRINE 4 MG/4 ML AMP ONE (17:42)
--- NOTE | 2017-02-01 18:02 | RADRPT ---
EXAM DATE/TIME: 02/01/2017 17:51 [facility] COMPARISON: No previous studies available for comparison. INDICATIONS : Shortness of breath. MEDICAL HISTORY : Hypertension. SURGICAL HISTORY : None. ENCOUNTER: Initial ACUITY: 1 day PAIN SCORE: 0/10 LOCATION: Bilateral chest FINDINGS: There is slight perivascular pulmonary edema. Focal consolidation is not seen. Heart and mediastinum are unremarkable for technique. CONCLUSION: Slight perivascular pulmonary edema. Charbel Cast MD on February 01, 2017 at 18:00 Board Certified Radiologist. This report was verified electronically.
[2017-02-01 18:05] LABS: CHLORIDE 106 MEQ/L (98-107); POTASSIUM 5.5 MEQ/L (3.5-5.1); SODIUM (NA) 137 MEQ/L (136-145)
[2017-02-01 18:11] LABS: INTERNATIONAL NORMALIZED RATIO 3.1 RATIO; PROTHROMBIN TIME - PATIENT 36.3 SEC (9.8-11.6)
[2017-02-01 18:27] LABS: ALKALINE PHOSPHATASE 112 U/L (45-117); ALT (GPT) 31 U/L (10-53); ANION GAP 25 MEQ/L (5-15); AST (GOT) 191 U/L (15-37); BICARBONATE 6.3 MEQ/L (21.0-32.0); BLOOD UREA NITROGEN 16 MG/DL (7-18); CREATINE KINASE 1726 U/L (26-192); GLOMERULAR FILTRATION RATE 26 ML/MIN (>89); TOTAL BILIRUBIN ADULT 6.2 MG/DL (0.2-1.0)
[2017-02-01] MEDS ORDERED: CALCIUM GLUCONATE INJ 2 GM in DEXTROSE 5% IN WATER 100ML INJ 100 ML IV ONE ×2 (18:30)
[2017-02-01] MEDS: NOREPINEPHRINE-DEXTROSE DRIP 250 ML IV SCH ×3 (18:43→22:52)
[2017-02-01] MEDS: DEXTROSE 10% INJ 1,000 ML IV SCH (18:43)
[2017-02-01 19:14] LABS: AUTOMATED NEUTROPHIL # 11.6 TH/MM3 (1.8-7.7); BASOPHIL # 0.1 TH/MM3 (0-0.2); BASOPHIL % 0.8 % (0.0-2.0); EOSINOPHIL # 0.1 TH/MM3 (0-0.4); EOSINOPHIL % 0.7 % (0.0-4.0); HEMATOCRIT 21.6 % (35.0-46.0); LYMPH % 16.6 % (9.0-44.0); LYMPHOCYTE # 2.4 TH/MM3 (1.0-4.8); MEAN CELL VOLUME 97.8 FL (80.0-100.0); MEAN CORPUSCULAR HGB CONC 32.7 % (32.0-36.0); MONO % 2.6 % (0.0-8.0); NEUT % 79.3 % (16.0-70.0); PLATELET COUNT 91 TH/MM3 (150-450); RED BLOOD COUNT 2.21 MIL/MM3 (4.00-5.30); RED CELL DISTRIBUTION WIDTH 18.2 % (11.6-17.2); WHITE BLOOD COUNT 14.6 TH/MM3 (4.0-11.0)
[2017-02-01 19:23] LABS: HEMO FLAGS AUTO DIFF
[2017-02-01 19:30] LABS: ACETAMINOPHEN LESS THAN 2.0 MCG/ML (10.0-30.0)
[2017-02-01] MEDS ORDERED: TERBUTALINE INJ 1 MG/ML AMP SQ PRN (19:30)
[2017-02-01 19:34] LABS: CKMB 29.1 NG/ML (0.5-3.6)
[2017-02-01 19:50] LABS: LACTIC ACID GHOST NOT REPORTABLE
[2017-02-01] MEDS: DOPamine INJ PREMIX 500 ML IV SCH (20:03)
[2017-02-01 20:05] LABS: BANDS 10 % (0-6); BASOPHILS 1 % (0-2); EOSINOPHILS 1 % (0-4); METAMYELOCYTES 7 % (0-1); MYELOCYTES 1 % (0-0); POLYS (SEG NEUTROPHILS) 64 % (16-70); TOXIC VACUOLATION PRESENT (NONE SEEN); WBC DIFF SAMPLE 100
[2017-02-01 20:06] LABS: PLATELET ESTIMATE SMEAR NORMAL (NORMAL); PLATELET MORPHOLOGY ENLARGED (NORMAL); SCAN/DIFF FINAL DIFF MANUAL
--- NOTE | 2017-02-01 20:12 | RADRPT ---
EXAM DATE/TIME: 02/01/2017 19:32 [facility] COMPARISON: CT BRAIN W/O CONTRAST, August 26, 2016, 19:34. INDICATIONS : Syncopal episode. RADIATION DOSE: 66.07 CTDIvol (mGy) MEDICAL HISTORY : Seizures. SURGICAL HISTORY : None. ENCOUNTER: Initial ACUITY: 1 day PAIN SCALE: 0/10 LOCATION: cranial TECHNIQUE: Multiple contiguous axial images were obtained of the head. Using automated exposure control and adj ustment of the mA and/or kV according to patient size, radiation dose was kept as low as reasonably a chievable to obtain optimal diagnostic quality images. DICOM format image data is available electro nically for review and comparison. FINDINGS: CEREBRUM: The ventricles are normal for age. No evidence of midline shift, mass lesion, hemorrhage or acute in farction. No extra-axial fluid collections are seen. POSTERIOR FOSSA: The cerebellum and brainstem are intact. The 4th ventricle is midline. The cerebellopontine angle i s unremarkable. EXTRACRANIAL: The visualized portion of the orbits is intact. SKULL: The calvaria is intact. No evidence of skull fracture. CONCLUSION: Negative noncontrast CT brain. Meet Martinez MD on February 01, 2017 at 20:10 Board Certified Radiologist. This report was verified electronically.
[2017-02-01 20:58] LABS: BLOOD, URINE LARGE (NEG); GLUCOSE,URINE NEG (NEG); KETONE, URINE NEG (NEG); NITRITE,URINE NEG (NEG); PH, URINE 5.5 (5.0-8.5)
[2017-02-01] MEDS ORDERED: VANCOMYCIN INJ 1,000 MG in SODIUM CHLOR 0.9% 250 ML INJ 250 ML IV STA (21:02)
[2017-02-01] MEDS ORDERED: CEFEPIME INJ 2,000 MG in SODIUM CHLORIDE 0.9% INJ 100 ML IV STA (21:02)
[2017-02-01 21:11] LABS: URINE COLOR YELLOW (YELLW/STRAW)
[2017-02-01 21:12] LABS: HYALINE CAST, URINE 0-2 /lpf (RARE); SQUAMOUS EPITHELIAL CELL URINE 0-5 /hpf (0-5)
[2017-02-01 21:14] LABS: BACTERIA, URINE MOD /hpf; COMMENT (UR) CULTURE INDICATED; CULTURE IF INDICATED CULTURE INDICATED; RENAL EPITHELIAL CELLS 0-5 /hpf
[2017-02-01 21:16] LABS: AMPHETAMINE, URINE NEG (NEG); BARBITURATES, URINE NEG (NEG)
[2017-02-01 21:17] LABS: COCAINE, URINE NEG (NEG)
[2017-02-02] VITALS (36 sets, daily range): BP systolic 60–89; BP diastolic 35–59; PULSE 0–130; RESP 16–24; TEMP 91.1–93; O2SAT 0–100
[2017-02-02 02:06] LABS: BLOOD GAS BASE EXCESS -25.8 mmol/L (-2-2); BLOOD GAS CARBOXYHEMOGLOBIN 0.4 % (0-4); BLOOD GAS HCO3 6 mmol/L (22-26); BLOOD GAS METHEMOGLOBIN 1.5 % (0-2); BLOOD GAS O2 HGB SATURATION 97 % (90-100); BLOOD GAS OXYGEN CONTENT 6.8 Vol % (12.0-20.0); BLOOD GAS PCO2 43 mmHG (38-42); BLOOD GAS PO2 353 mmHG (61-120); BLOOD GAS TOTAL HGB 4.3 G/DL (12.0-16.0); CRITICAL VALUE YES; DRAW SITE RT FEMORAL; FIO2 100 %; OXYGEN DEVICE VENTILATOR; TEMP CORR TO 98.6; VENT SETTINGS AC16/500/5PEEP
[2017-02-02 02:07] LABS: NUMBER OF ARTERIAL PUNCTURES 2
[2017-02-02 02:08] LABS: STAT YES
[2017-02-02] MEDS ORDERED: SODIUM CHLOR 0.9% 250 ML INJ 250 ML IV ONE (03:00)
[2017-02-02] MEDS ORDERED: SODIUM BICARBONATE 8.4% INJ 50 MEQ/50 ML SYR IV PUSH ONE ×9 (03:00→06:45)
[2017-02-02] MEDS: SODIUM BICARBONATE 8.4% INJ 150 MEQ in DEXTROSE 5% IN WATE 1000ML INJ 1,000 ML IV SCH ×4 (03:19→09:52)
--- NOTE | 2017-02-02 03:30 | RADRPT ---
EXAM DATE/TIME: 02/02/2017 03:16 [facility] COMPARISON: CT BRAIN W/O CONTRAST, February 01, 2017, 19:32. CHEST SINGLE AP, February 01, 2017, 17:51. INDICATIONS : Status post intubation. Syncopal episode earlier MEDICAL HISTORY : Hypertension. SURGICAL HISTORY : None. ENCOUNTER: Subsequent ACUITY: 1 day PAIN SCORE: Non-responsive. LOCATION: Bilateral chest FINDINGS: A single view of the chest demonstrates the lungs to be symmetrically aerated without evidence of mas s or effusion. There is new mild patchy opacity at the left lung base. The cardiomediastinal contour s are unremarkable. Osseous structures are intact. There has been interval placement of endotracheal tube with tip just above the level of the mimi. CONCLUSION: 1. Interval placement of endotracheal tube with the tip just above the mimi. 2. new mild patchy opacity at the left lung base. Francisco Lamb MD on February 02, 2017 at 3:26 Board Certified Radiologist. This report was verified electronically.
[2017-02-02] MEDS: EPINEPHrine (1:1000) INJ 2 MG in DEXTROSE 5% IN WATER INJ 248 ML IV SCH ×6 (03:32→10:43)
[2017-02-02] MEDS ORDERED: PROTHROMBIN COMPLEX CONC INJ 1,500 UNITS in SYRINGE/BAG 1 EA IV ONE (04:15)
[2017-02-02] MEDS ORDERED: CALCIUM GLUCONATE INJ 2 GM in DEXTROSE 5% IN WATER 100ML INJ 100 ML IV ONE ×2 (04:15)
[2017-02-02] MEDS: NOREPINEPHRINE-DEXTROSE DRIP 250 ML IV SCH ×3 (04:52→12:12)
[2017-02-02 05:33] LABS: BLOOD GAS BASE EXCESS -24.5 mmol/L (-2-2); BLOOD GAS CARBOXYHEMOGLOBIN 0.4 % (0-4); BLOOD GAS HCO3 7 mmol/L (22-26); BLOOD GAS METHEMOGLOBIN 1.6 % (0-2); BLOOD GAS O2 HGB SATURATION 93 % (90-100); BLOOD GAS OXYGEN CONTENT 9.3 Vol % (12.0-20.0); BLOOD GAS PCO2 44 mmHG (38-42); BLOOD GAS PO2 133 mmHG (61-120); BLOOD GAS TOTAL HGB 6.9 G/DL (12.0-16.0); TEMP CORR TO 98.6
[2017-02-02 05:34] LABS: CRITICAL VALUE YES; DRAW SITE ART LINE; FIO2 100 %; OXYGEN DEVICE VENTILATOR; STAT NO; VENT SETTINGS AC16/500/5PEEP
[2017-02-02 05:40] LABS: AUTOMATED NEUTROPHIL # 8.1 TH/MM3 (1.8-7.7); BASOPHIL % 0.3 % (0.0-2.0); EOSINOPHIL # 0.1 TH/MM3 (0-0.4); EOSINOPHIL % 0.8 % (0.0-4.0); LYMPH % 14.6 % (9.0-44.0); LYMPHOCYTE # 1.4 TH/MM3 (1.0-4.8); MEAN CELL VOLUME 98.8 FL (80.0-100.0); MEAN CORPUSCULAR HEMOGLOBIN 32.2 PG (27.0-34.0); MEAN CORPUSCULAR HGB CONC 32.5 % (32.0-36.0); MONO % 0.4 % (0.0-8.0); NEUT % 83.9 % (16.0-70.0); PLATELET COUNT 58 TH/MM3 (150-450); RED CELL DISTRIBUTION WIDTH 17.6 % (11.6-17.2); WHITE BLOOD COUNT 9.6 TH/MM3 (4.0-11.0)
[2017-02-02 05:56] LABS: HEMO FLAGS AUTO DIFF
[2017-02-02 05:57] LABS: HEMATOCRIT 21.7 % (35.0-46.0)
[2017-02-02 06:04] LABS: MAGNESIUM 3.8 MG/DL (1.5-2.5); TOTAL BILIRUBIN ADULT 5.6 MG/DL (0.2-1.0)
[2017-02-02 06:11] LABS: CALCIUM-PROTEIN CORRECTED 7.6 MG/DL (8.5-10.1); POTASSIUM 6.6 MEQ/L (3.5-5.1)
[2017-02-02] MEDS ORDERED: DEXTROSE 50% IN WATER 50 ML VIAL(D50) IV PUSH ONE (06:30)
[2017-02-02] MEDS ORDERED: PHYTONADIONE INJ 10 MG in SODIUM CHLORIDE 0.9% INJ 50 ML IV ONE (06:30)
[2017-02-02] MEDS ORDERED: BISACODYL 10 MG SUPP RECTAL PRN (06:30)
[2017-02-02] MEDS ORDERED: CALCIUM GLUCONATE INJ 1 GM in SODIUM CHLORIDE 0.9% INJ 100 ML IV ONE (06:30)
[2017-02-02] MEDS ORDERED: MISCELLANEOUS NURSING INFORMATION XX SCH (06:30)
[2017-02-02] MEDS ORDERED: LACTULOSE SYRUP 20 GM/30 ML CUP PO PRN (06:30)
[2017-02-02] MEDS ORDERED: MAGNESIUM HYDROXIDE SUSP 30 ML CUP PO PRN (06:30)
[2017-02-02] MEDS ORDERED: TERBUTALINE INJ 1 MG/ML AMP SQ PRN (06:30)
[2017-02-02] MEDS ORDERED: OCTREOTIDE INJ 50 MCG/ML AMP IV ONE (06:30)
[2017-02-02] MEDS ORDERED: HYDROCORTISONE SOD SUCCINATE 100 MG VIAL IV PUSH SCH (06:30)
[2017-02-02] MEDS ORDERED: SENNOSIDES 8.6 MG TAB PO PRN (06:30)
[2017-02-02] MEDS ORDERED: CHLORHEXIDINE GLUCONATE 2 % 1 PACK (2 CLOTHS) TOP PRN (06:30)
[2017-02-02] MEDS ORDERED: INSULIN HUMAN REGULAR 1,000 UNITS/10 ML VIAL IV PUSH ONE ×2 (06:30→10:15)
[2017-02-02] MEDS ORDERED: SODIUM POLYSTYRENE SULFONATE SUSP 15 GM/60 ML CUP PO ONE (06:30)
[2017-02-02 06:33] LABS: INTERNATIONAL NORMALIZED RATIO 1.8 RATIO; PROTHROMBIN TIME - PATIENT 20.6 SEC (9.8-11.6)
[2017-02-02 06:41] LABS: BANDS 27 % (0-6); BASOPHILS 1 % (0-2); CORRECTED NUCLEATED RBC 4 /100 WBC (0-0); METAMYELOCYTES 8 % (0-1); MYELOCYTES 3 % (0-0); NEUTROPHIL # MANUAL DIFF 7.1 TH/MM3 (1.8-7.7); POLYS (SEG NEUTROPHILS) 36 % (16-70); WBC DIFF SAMPLE 100
[2017-02-02 06:45] LABS: BURR CELLS 1+ (NORMAL); OVALOCYTES 1+ (NORMAL); PLATELET ESTIMATE SMEAR LOW (NORMAL); PLATELET MORPHOLOGY NORMAL (NORMAL); ROULEAUX PRESENT (NORMAL); SCAN/DIFF FINAL DIFF MANUAL; TOXIC VACUOLATION PRESENT (NONE SEEN)
[2017-02-02] MEDS ORDERED: DEXTROSE 50% IN WATER 50 ML VIAL(D50) IV PRN (06:45)
[2017-02-02] MEDS ORDERED: SODIUM CHLOR 0.9% 1000 ML INJ 1,000 ML IV ONE ×2 (06:45)
[2017-02-02] MEDS ORDERED: GLUCAGON 1 MG/ML VIAL OTHER PRN (06:45)
[2017-02-02] MEDS ORDERED: Vancomycin Consult Pharmacy 1 EA OTHER SCH (06:45)
[2017-02-02] MEDS ORDERED: INSULIN NovoLIN REGULAR SUPPLEMENTAL SCALE SQ SCH (06:45)
[2017-02-02] MEDS ORDERED: PIPERACIL-TAZO 4.5 GM PREMIX 100 ML IV SCH (07:00)
[2017-02-02] MEDS ORDERED: PHENYLEPHRINE INJ 40 MG in DEXTROSE 5% IN WATE 500 ML INJ 496 ML IV SCH ×2 (07:30)
[2017-02-02] MEDS ORDERED: PANTOPRAZOLE INJ 80 MG in SODIUM CHLORIDE 0.9% INJ 100 ML IV SCH (07:30)
[2017-02-02 07:42] LABS: BLOOD GAS BASE EXCESS -21.7 mmol/L (-2-2); BLOOD GAS CARBOXYHEMOGLOBIN 0.9 % (0-4); BLOOD GAS HCO3 9 mmol/L (22-26); BLOOD GAS METHEMOGLOBIN 1.7 % (0-2); BLOOD GAS O2 HGB SATURATION 52 % (90-100); BLOOD GAS OXYGEN CONTENT 4.8 Vol % (12.0-20.0); BLOOD GAS PCO2 55 mmHG (38-42); BLOOD GAS PO2 45 mmHG (61-120); BLOOD GAS TOTAL HGB 6.5 G/DL (12.0-16.0); TEMP CORR TO 98.6
[2017-02-02 07:43] LABS: CRITICAL VALUE YES; DRAW SITE LT FEMORAL; FIO2 100 %; NUMBER OF ARTERIAL PUNCTURES 1; OXYGEN DEVICE VENTILATOR; STAT YES; ULNAR PULSE PRESENT; VENT SETTINGS AC/24/550/5PEEP
[2017-02-02] MEDS ORDERED: OCTREOTIDE INJ 100 MCG/ML VIAL IV ONE (08:00)
[2017-02-02] MEDS: RESP: ALBUTEROL 2.5 MG/IPRATROPIUM 0.5 MG NEB (SCH) INH ×2 (08:20→11:22)
[2017-02-02] MEDS ORDERED: OCTREOTIDE INJ 500 MCG in SODIUM CHLORID 0.9% 500 ML INJ 499.5 ML IV SCH (08:30)
--- NOTE | 2017-02-02 08:54 | MH ---
cc: HARRIS TEMPLE M.D. DATE OF ADMISSION: 02/01/2017 DATE OF 1965 HISTORY OF PRESENT ILLNESS The patient is a 51-year-old with active issue of EtOH abuse and cirrhosis of the liver who presented to [facility] ED after her roommates found her collapsed to the ground after standing and she had a shaking episode, questionable seizure. Upon arrival of EMS the patient was found hypotensive with a systolic blood pressure in the 60s, hypoglycemic with a blood sugar of 37 and she was given D50 and IV fluids. On arrival to the ER she was hypotensive with systolic blood pressure in the 60s to 70s, tachycardiac with heart rate of 110-120s. The patient was intubated and placed on full mechanical ventilation. Her ABG post-intubation showed severe metabolic acidosis with a pH of 6.75, CO2 43, pAO2 of 353, bicarb of 6 with a saturation of 97%. In addition, her hemoglobin was found to be 4.3 on the ABG. Repeat ABG at 05:20 this morning still shows metabolic acidosis with a pH of 6.81 and a bicarb of 7. Her laboratory data showed multiorgan failure including renal failure. Her creatinine was 2.0 and hyperkalemic with potassium 5.5. In addition the patient had elevated liver enzymes and severe lactic acidosis with lactic acid level of 15.6. Her CBC showed leukocytosis with a WBC of 14.6, hemoglobin 7.1 and a platelet count of 91. The patient was also coagulopathic with an INR of 3.1, PT of 36.3 and PTT 65.0. Her urine drug screen is negative for benzos, cocaine and amphetamines. A CT scan of the brain in the ER was negative for acute intracranial process. A chest x-ray post-intubation showed mild opacity at the left lung base, ET tube above the mimi. Due to septic shock, the patient was placed on multiple pressors and she is currently on dopamine 20 mcg, Levophed at 20 mcg, epi drip and bicarb drip. She received approximately 7 ampules IV pushes of bicarb and her repeat lactic acid this morning is at 21.0 from 15.6. Her laboratory data showed worsening renal function with creatinine 2.6 and hyperkalemia with potassium level of 6.6. Her hyperkalemia is currently being treated with 10 units IV insulin, 1 amp of D50, additional 2 ounces IV push of bicarb, calcium gluconate and kayexalate. Case discussed with Dr. Michele from Nephrology Service and recommended to treat hyperkalemia medically as the patient is unstable for dialysis at the present time. Overnight the patient went into cardiac arrest and she was felt to be unstable to be transferred to [facility]. PAST MEDICAL HISTORY Questionable history of seizures. PAST SURGICAL HISTORY 1. Previous appendectomy. 2. Previous . SOCIAL HISTORY The patient is an active drinker where she drinks two shots and three to four beers a day. In addition she is an active smoker. ALLERGIES No known drug allergies. REPORTED MEDICATIONS No active prescriptions. FAMILY HISTORY Noncontributory. REVIEW OF SYSTEMS As per HPI. REVIEW OF SYSTEMS Unobtainable. PHYSICAL EXAMINATION GENERAL: A 51-year-old female intubated, status post cardiac arrest on multiple pressors, critically ill. VITAL SIGNS: Temperature 97.5, pulse of 108, blood pressure 70/palp, saturation 100% vent setting, assist control rate of 16, tidal volume 500 PEEP ON 100% FIO2. HEENT: Atraumatic, normocephalic. Pupils equal and reactive to light and accommodation. Extraocular muscles intact. Conjunctivae pink. Icteric sclera noted. NECK: Supple. No JVD, adenopathy or thyromegaly. Trachea in midline. CARDIOVASCULAR EXAM: Tachycardiac. Normal S1-S2. No murmurs, rubs or gallops noted. Pulmonary exam - Bilateral equal air entry. No rales or wheezing. ABDOMEN: Soft, nontender, no distension. Positive bowel sounds. EXTREMITIES: No cyanosis, clubbing, +1 edema. NEURO: Intubated, unresponsive. LABORATORY DATA From this morning sodium of 32, potassium 6.6, chloride 93, CO2 8, anion gap 31, BUN of 16, creatinine 2.6, glucose of 283, lactic acid 21, corrected calcium 7.6, total bilirubin 5.6, AST 1727, ALT 176, alk phos 417. WBC 9.6, hemoglobin 7.1, hematocrit 21, platelet count 58. INR 1.8. On repeat initial coagulation profile showed a PT of 36.3, INR 3.1 with a PTT of 65. RADIOGRAPHIC STUDIES Chest x-ray post-intubation showed new mild opacity at the left lung base. CT brain negative for acute intracranial process. IMPRESSION 1. Vent-dependent respiratory failure. 2. Status post of cardiopulmonary arrest. 3. Septic shock. 4. Severe lactic acidemia. 5. Acute renal failure. 6. Hyperkalemia. 7. Elevated LFTs secondary to hepatic shock. 8. Coagulopathy. 9. GI bleed. 10. Anemia and thrombocytopenia. 11. EtOH abuse. RECOMMENDATIONS 1. Fentanyl infusion if needed for sedation. 2. Monitor neuro status closely. 3. We will check ammonia level. 4. CT scan of the brain in the ER negative for acute intracranial process and urine drug screen negative for amphetamines, benzodiazepines and cannabinoids. 5. We will place on thiamine, multivitamins and folic acid. 6. Continue with vent support and maintain sats above 92%. 7. Bronchodilators in the form of DuoNeb q. 6. 8. We will increase respiratory rate to 24, increase tidal volume to 550 and repeat ABG. 9. Continue with pressors. Titrate to keep MAP greater than 65 mmHg. We will give an additional 2 liters of crystalloid boluses and continue with bicarb drip. 10. The patient is on D5W with 3 ampules of bicarb. Will increase to 150 mL/hour. 11. Serial lactic acid monitoring. 12. Monitor renal function I's and O's and avoid nephrotoxins. We will treat hyperkalemia with 10 units of IV insulin and 1 ampule of D50, additional 2 amps IV push of bicarb, Kayexalate 30 grams and calcium gluconate. 13. Continue with the bicarb drip as stated above. 14. Case discussed with Dr. Michele from Nephrology Service and recommended medical management. For now the patient is too unstable for hemodialysis. 15. Obtain ultrasound of the abdomen. 16. Keep n.p.o. for now. 17. Place on Protonix and octreotide drips. 18. We will consult GI service and monitor LFTs. Her elevated liver enzymes are secondary to hepatic shock. Discussed with Dr. Onitveros from GI service. 19. Monitor CBC and coagulation profile. She received 2 units of packed red blood cells and 2 units of FFP overnight. We will give vitamin K 10 mg IV push x 1 and monitor CBC closely and maintain hemoglobin greater than 8. 20. Continue with broad-spectrum antibiotics. She was given vancomycin and cefepime. We will continue with vancomycin. The pharmacy to adjust dose per renal function and we will add Zosyn; dosing will be adjusted per renal function as well. Follow up on blood cultures and urine culture. 21. Place on sliding scale with Accu-Cheks for glycemic control. 22. GI prophylaxis. Patient will be on Protonix drip. 23. DVT prophylaxis with SCDs. Chemical anticoagulation prophylaxis contraindicated in the setting of coagulopathy and GI bleed. 24. Lines: Right femoral central line was placed by ED. The patient is critically ill with respiratory failure septic shock, on multiple pressors, renal failure, hepatic failure. The prognosis is guarded. I updated the patient's was at the bedside and he understands the severity of the patient's illness. Addendum: Patient had second cardiac arrest in ED spoke to patient's ( Ronald Prado) and he was agreeable to make patient Alternative code with no ACLS drugs or cardiac resuscitation in case of another arrest. Dr. Gracia from Palliative care spoke to him as well and after their discussion he agreed to transition to comfort care after arrival of other family members. However patient before then. CRITICAL CARE TIME 60 minutes excluding procedures. MD DILIA Rowe/FLORENTIN /6:50 AM /8:25 AM [place]
[2017-02-02] MEDS ORDERED: MULTIVITAMIN TAB PO SCH (09:00)
[2017-02-02] MEDS ORDERED: THIAMINE INJ 100 MG in SODIUM CHLORIDE 0.9% INJ 100 ML IV SCH (09:00)
[2017-02-02] MEDS ORDERED: PANTOPRAZOLE SODIUM 40 MG VIAL IV SCH (09:00)
[2017-02-02] MEDS ORDERED: DOCUSATE SODIUM 50 MG/SENNA 8.6 MG TAB PO SCH (09:00)
[2017-02-02] MEDS ORDERED: PIPERACIL-TAZO 2.25 GM PREMIX 50 ML IV SCH (09:00)
[2017-02-02] MEDS ORDERED: FOLIC ACID 1 MG TAB PO SCH (09:00)
--- NOTE | 2017-02-02 09:03 | PD ---
Physical Exam Narrative Patient was seen and managed by Dr. Solorio. Patient was admitted to the ICU at 9PM on February 01, 2017. However, patient remained in the ED for the night. When EMS came to transfer the patient to the main campus ICU, patient was very unstable and suffered cardiac arrest. I assisted Dr. Solorio and nursing staff in resuscitating the patient and ROSC was achieved. Dr. Solorio remained in the ED until 2:30AM managing the acute issues for the patient. 4 units of uncrossed blood was ordered as her Hgb was found to be 4. Data Data Last Documented VS Vital Signs Date Time Temp Pulse Resp B/P Pulse Ox O2 Delivery O2 Flow Rate FiO2 02/01/17 20:54 107 28 93/52 94 Nasal Cannula 3 02/01/17 18:40 97.5 Orders Norepinephrine Inj (Levophed Inj) (02/01/17 17:42) Electrocardiogram (02/01/17 17:39) Complete Blood Count With Diff (02/01/17 17:39) Comprehensive Metabolic Panel (02/01/17 17:39) Ckmb (Isoenzyme) Profile (02/01/17 17:39) Troponin I (02/01/17 17:39) Prothrombin Time / Inr (Pt) (02/01/17 17:39) Act Partial Throm Time (Ptt) (02/01/17 17:39) Lipase (02/01/17 17:39) Urinalysis - C+S If Indicated (02/01/17 17:39) Chest, Single Ap (02/01/17 17:39) Ct Brain W/O Iv Contrast(Rout) (02/01/17 17:39) Iv Access Insert/Monitor (02/01/17 17:39) Ecg Monitoring (02/01/17 17:39) Oximetry (02/01/17 17:39) Blood Glucose (02/01/17 17:39) Urinary Catheter Insert/Apply (02/01/17 17:39) Drug Screen, Random Urine (02/01/17 17:39) Alcohol (Ethanol) (02/01/17 17:39) Salicylates (Aspirin) (02/01/17 17:39) Tylenol (Acetaminophen) (02/01/17 17:39) Lactic Acid Sepsis Protocol (02/01/17 17:39) Blood Culture (02/01/17 17:39) Sodium Chlor 0.9% 1000 Ml Inj (Ns 1000 M (02/01/17 17:39) Sodium Chlor 0.9% 1000 Ml Inj (Ns 1000 M (02/01/17 17:39) Norepinephrine-Dextrose Drip (Levophed-D (02/01/17 17:45) Dextrose 10% Inj (D10w Inj) (02/01/17 18:15) CKMB (02/01/17 17:38) CKMB% (02/01/17 17:38) Calcium Gluconate Inj (Calcium Gluconate (02/01/17 18:30) ^ Infusion (02/01/17 ) Dopamine Inj Premix (Dopamine Inj Premix (02/01/17 19:30) Terbutaline Inj (Brethine Inj) (02/01/17 19:30) Admit Order (Ed Use Only) (02/01/17 20:57) Labs Laboratory Tests Test 02/01/17 02/01/17 02/01/17 02/01/17 17:38 19:01 20:48 20:50 Prothrombin Time 36.3 SEC Prothromb Time International 3.1 RATIO Ratio Activated Partial 65.0 SEC Thromboplast Time Sodium Level 137 MEQ/L Potassium Level 5.5 MEQ/L Chloride Level 106 MEQ/L Carbon Dioxide Level 6.3 MEQ/L Anion Gap 25 MEQ/L Blood Urea Nitrogen 16 MG/DL Creatinine 2.00 MG/DL Estimat Glomerular Filtration 26 ML/MIN Rate Random Glucose 82 MG/DL Lactic Acid Level 15.6 mmol/L 16.1 mmol/L Calcium Level 6.0 MG/DL Protein Corrected Calcium 7.0 MG/DL Total Bilirubin 6.2 MG/DL Aspartate Amino Transf 191 U/L (AST/SGOT) Alanine Aminotransferase 31 U/L (ALT/SGPT) Alkaline Phosphatase 112 U/L Total Creatine Kinase 1726 U/L Creatine Kinase MB 29.1 NG/ML Creatine Kinase MB % 1.7 % Troponin I 0.02 NG/ML Total Protein 5.0 GM/DL Albumin 1.3 GM/DL Lipase 136 U/L Acetaminophen Level LESS THAN 2.0 MCG/ML Ethyl Alcohol Level LESS THAN 3 MG/DL White Blood Count 14.6 TH/MM3 Red Blood Count 2.21 MIL/MM3 Hemoglobin 7.1 GM/DL Hematocrit 21.6 % Mean Corpuscular Volume 97.8 FL Mean Corpuscular Hemoglobin 32.0 PG Mean Corpuscular Hemoglobin 32.7 % Concent Red Cell Distribution Width 18.2 % Platelet Count 91 TH/MM3 Mean Platelet Volume 10.2 FL Neutrophils (%) (Auto) 79.3 % Lymphocytes (%) (Auto) 16.6 % Monocytes (%) (Auto) 2.6 % Eosinophils (%) (Auto) 0.7 % Basophils (%) (Auto) 0.8 % Neutrophils # (Auto) 11.6 TH/MM3 Lymphocytes # (Auto) 2.4 TH/MM3 Monocytes # (Auto) 0.4 TH/MM3 Eosinophils # (Auto) 0.1 TH/MM3 Basophils # (Auto) 0.1 TH/MM3 CBC Comment AUTO DIFF Differential Total Cells 100 Counted Neutrophils % (Manual) 64 % Band Neutrophils % 10 % Lymphocytes % 11 % Monocytes % 5 % Eosinophils % 1 % Basophils % 1 % Neutrophils # (Manual) 12.0 TH/MM3 Metamyelocytes 7 % Myelocytes 1 % Differential Comment FINAL DIFF MANUAL Toxic Vacuolation PRESENT Platelet Estimate NORMAL Platelet Morphology Comment ENLARGED Urine Color YELLOW Urine Turbidity CLOUDY Urine pH 5.5 Urine Specific [place] 1.010 Urine Protein 100 mg/dL Urine Glucose (UA) NEG mg/dL Urine Ketones NEG mg/dL Urine Occult Blood LARGE Urine Nitrite NEG Urine Bilirubin NEG Urine Leukocyte Esterase NEG Urine RBC 20-24 /hpf Urine WBC 6-8 /hpf Urine Squamous Epithelial 0-5 /hpf Cells Urine Renal Epithelial Cells 0-5 /hpf Urine Bacteria MOD /hpf Urine Hyaline Casts 0-2 /lpf Urine Fine Granular Casts 3-5 /lpf Microscopic Urinalysis Comment CULTURE INDICATED Urine Opiates Screen NEG Urine Barbiturates Screen NEG Urine Amphetamines Screen NEG Urine Benzodiazepines Screen NEG Urine Cocaine Screen NEG Urine Cannabinoids Screen NEG MDM Supervised Visit with ESTEFANÍA: No Narrative Course Patient remained in the ED throughout the night due to patient instability for transport and lack of ICU beds available. Transfusion order was placed by me as it was never officially placed. Dr. Conroy was unaware of the patient's change in condition. There were no orders placed for the patient beyond those placed by the original ED physician. At 4AM, I spoke with Dr. Conroy and updated him on the patient's condition. We discussed the patient's current critical state and abnormal labs. It was decided to give KCENTRA and FFP. Patient was given Bicarb and started on a Bicarb drip. I continued to aid nursing in managing the patient for the rest of the night in attempts to stabilize the patient. Dr. Liao arrived at 6:15AM and began managing the patient from that point forward. Diagnosis Primary Impression: SYNCOPE Additional Impressions: HYPOCALCEMIA HYPOGLYCEMIA S/P CARDIAC AR SEPTIC SHOCK Scripts No Active Prescriptions or Reported Meds Condition: Critical Marybeth Menchaca MD Feb 02, 2017 09:02
[2017-02-02 09:21] LABS: HEMATOCRIT 21.1 % (35.0-46.0); MEAN CELL VOLUME 97.3 FL (80.0-100.0); MEAN CORPUSCULAR HEMOGLOBIN 32.3 PG (27.0-34.0); MEAN CORPUSCULAR HGB CONC 33.2 % (32.0-36.0); PLATELET COUNT 31 TH/MM3 (150-450); RED BLOOD COUNT 2.17 MIL/MM3 (4.00-5.30); WHITE BLOOD COUNT 8.8 TH/MM3 (4.0-11.0)
[2017-02-02 09:25] LABS: HEMO FLAGS AUTO DIFF
[2017-02-02 09:37] LABS: BLOOD GAS BASE EXCESS -24.2 mmol/L (-2-2); BLOOD GAS CARBOXYHEMOGLOBIN 0.5 % (0-4); BLOOD GAS HCO3 6 mmol/L (22-26); BLOOD GAS METHEMOGLOBIN 1.7 % (0-2); BLOOD GAS O2 HGB SATURATION 96 % (90-100); BLOOD GAS OXYGEN CONTENT 9.4 Vol % (12.0-20.0); BLOOD GAS PCO2 30 mmHg (38-42); BLOOD GAS PO2 178 mmHg (61-120); BLOOD GAS TOTAL HGB 6.6 G/DL (12.0-16.0)
[2017-02-02 09:38] LABS: CRITICAL VALUE YES; DRAW SITE LT FEMORAL; FIO2 100 %; NUMBER OF ARTERIAL PUNCTURES 2; OXYGEN DEVICE VENTILATOR; STAT YES; ULNAR PULSE PRESENT; VENT SETTINGS AC/24/550/5PEEP
[2017-02-02 09:49] LABS: BANDS 29 % (0-6); CORRECTED NUCLEATED RBC 4 /100 WBC (0-0); METAMYELOCYTES 4 % (0-1); MYELOCYTES 2 % (0-0); POLYS (SEG NEUTROPHILS) 33 % (16-70); WBC DIFF SAMPLE 100
[2017-02-02 09:51] LABS: KERATOCYTES OCC (NORMAL); OVALOCYTES 1+ (NORMAL); PLATELET ESTIMATE SMEAR LOW (NORMAL); PLATELET MORPHOLOGY NORMAL (NORMAL); ROULEAUX PRESENT (NORMAL); SCAN/DIFF FINAL DIFF MANUAL; TOXIC GRANULATION 1+ (NORMAL); TOXIC VACUOLATION PRESENT (NONE SEEN)
[2017-02-02] MEDS: DOPamine INJ PREMIX 500 ML IV SCH ×2 (09:52→12:12)
[2017-02-02] MEDS: DEXTROSE 10% INJ 1,000 ML IV SCH (09:53)
[2017-02-02 10:03] LABS: BICARBONATE 8.5 MEQ/L (21.0-32.0); CALCIUM-PROTEIN CORRECTED 8.1 MG/DL (8.5-10.1); POTASSIUM 6.2 MEQ/L (3.5-5.1); TOTAL BILIRUBIN ADULT 5.2 MG/DL (0.2-1.0)
--- NOTE | 2017-02-02 10:03 | RADRPT ---
EXAM DATE/TIME: 02/02/2017 09:29 [facility] COMPARISON: No previous studies available for comparison. INDICATIONS : Elevated labs. MEDICAL HISTORY : Hypertension. Seizures. SURGICAL HISTORY : Appendectomy. section. ENCOUNTER: Subsequent ACUITY: 1 day PAIN SCORE: Nonresponsive. LOCATION: Bilateral abdomen. MEASUREMENTS: LIVER: 20.3 cm length COMMON DUCT: 4 mm RIGHT KIDNEY: 11.6 x 5.0 x 6.2 cm LEFT KIDNEY: 12.6 x 5.8 x 6.2 cm SPLEEN: 14.9 cm length AORTA: 2.7cm maximal FINDINGS: Liver enlarged at 20 cm with likely changes of liver cirrhosis. There is reversal of flow in the port al vein characteristic of portal hypertension. Common bile duct measures 4 mm in diameter. There is t race ascites with pericholecystic fluid as well. Gallbladder sludge noted. Gallbladder wall thickenin g to 5 mm. Aorta, IVC and pancreas not well visualized due to overlying bowel gas. No hydronephrosis. CONCLUSION: 1. Liver cirrhosis with portal hypertension and reversal of flow direction within the portal vein. 2. Gallbladder sludge. 3. Minimal ascites. Sotero Darling MD on February 02, 2017 at 9:55 Board Certified Radiologist. This report was verified electronically.
[2017-02-02] MEDS ORDERED: LORazepam 2 MG/ML VIAL IV PUSH ONE (10:15)
--- NOTE | 2017-02-02 10:25 | PD.CONS ---
HPI Consult Requested By Reason for Consult Acute renal failure. Primary Care Physician No Primary Care Physician History of Present Illness 51-year-old female with a history of alcohol abuse, cirrhosis who apparently at the hospital AGAINST MEDICAL ADVICE back in September of this year after having a seizure was now brought to this institution again with altered mental status to this and a question of a seizure. On presentation she was noted to have shock syndrome initially with blood pressure in the 60s systolic. No improvement despite utilization of 3 inotropic agents and presently her blood pressure is not recordable. Apparently ICU is having difficulty placing a line. She is also sustained 2 cardiac arrests since presentation. Potassium level bernadine to 6.6 but subsequently has improved to 6.2. She is currently on a bicarbonate drip. has now made patient a DNR. No previous history of CKD. Patient herself is unresponsive with an ET tube in place on ventilatory support. by bedside. Review of Systems ROS Limitations: Unresponsive Past Family Social History Allergies: Coded Allergies: No Known Allergies (Unverified , 02/01/17) Past Medical History Alcohol abuse. Marijuana use. Cirrhosis. Past Surgical History Unobtainable from patient. Reported Medications Reported Meds & Active Scripts Active No Active Prescriptions or Reported Medications Active Ordered Medications Current Medications Norepinephrine Bitartrate 4 mg 4 mg STK-MED ONCE .ROUTE ; Start 02/01/17 at 17: 42; Stop 02/01/17 at 17:43; Status DC Sodium Chloride 1,000 ml @ 1,000 mls/hr Q1H ONCE IV Last administered on 17:35; Start 02/01/17 at 17:39; Stop 02/01/17 at 18:38; Status DC Sodium Chloride 800 ml @ 1,000 mls/hr Q48M ONCE IV Last administered on 17:35; Start 02/01/17 at 17:39; Stop 02/01/17 at 18:26; Status DC Norepinephrine Bitartrate 250 ml @ 0 mls/hr TITRATE IV Last administered on 02/02 09:52; Start 02/01/17 at 17:45 Dextrose 1,000 ml @ 100 mls/hr Q10H IV Last administered on 02/02/17 09:53; Start 02/01/17 at 18:15 Calcium Gluconate 2 gm/Dextrose 120 ml @ 120 mls/hr ONCE ONCE IV Last administered on 02/01/17 19:31; Start 02/01/17 at 18:30; Stop 02/01/17 at 19:29 ; Status DC Dopamine HCl/ Dextrose (DOPamine INJ PREMIX) 500 ml @ 7.65 mls/hr TITRATE IV Last administered on 02/02/17 09:52; Start 02/01/17 at 19:30 Terbutaline Sulfate 1 mg 1 mg UNSCH PRN SQ For Extravasation; Start 02/01/17 at 19:30 Vancomycin HCl 1000 mg/Sodium Chloride 250 ml @ 250 mls/hr ONCE STAT IV Last administered on 02/01/17 22:35; Start 02/01/17 at 21:02; Stop 02/01/17 at 22:01 ; Status DC Cefepime HCl 2000 mg/Sodium Chloride 100 ml @ 200 mls/hr ONCE STAT IV Last administered on 02/01/17 21:56; Start 02/01/17 at 21:02; Stop 02/01/17 at 21:31 ; Status DC Epinephrine HCl 2 mg/Dextrose 250 ml @ 22.5 mls/hr TITRATE IV Last administered on 02/02/17 09:50; Start 02/02/17 at 04:15 Sodium Bicarbonate/ Dextrose (Sodium Bicarbonate 8.4% Inj/D5W 1000 ml Inj) 1, 150 ml @ 150 mls/hr Q7H40M IV Last administered on 02/02/17 09:52; Start at 03:00 Sodium Bicarbonate (Sodium Bicarbonate 8.4% Inj) 50 meq ONCE ONCE IV PUSH Last administered on 02/02/17 03:10; Start 02/02/17 at 03:00; Stop 02/02/17 at 03: 01; Status DC Sodium Bicarbonate (Sodium Bicarbonate 8.4% Inj) 50 meq ONCE ONCE IV PUSH Last administered on 02/02/17 03:01; Start 02/02/17 at 03:00; Stop 02/02/17 at 03: 01; Status DC Sodium Bicarbonate (Sodium Bicarbonate 8.4% Inj) 50 meq ONCE ONCE IV PUSH Last administered on 02/02/17 03:15; Start 02/02/17 at 03:00; Stop 02/02/17 at 03: 01; Status DC Sodium Bicarbonate 50 meq 50 meq ONCE ONCE IV PUSH Last administered on 03:09; Start 02/02/17 at 03:00; Stop 02/02/17 at 03:01; Status DC Sodium Chloride 250 ml @ 15 mls/hr ONCE ONCE IV ; Start 02/02/17 at 03:00; Stop 02/02/17 at 19:39 Calcium Gluconate 2 gm/Dextrose 120 ml @ 120 mls/hr ONCE ONCE IV Last administered on 02/02/17 04:53; Start 02/02/17 at 04:15; Stop 02/02/17 at 05:14; Status DC Prothrombin Complex Concent (Human)/Syringe / Bag (Kcentra Inj/ Syringe/Bag) 0 ml @ 500 mls/hr ONCE ONCE IV Last administered on 02/02/17 04:37; Start at 04:15; Stop 02/02/17 at 04:16; Status DC Sodium Bicarbonate (Sodium Bicarbonate 8.4% Inj) 50 meq ONCE ONCE IV PUSH Last administered on 02/02/17 05:51; Start 02/02/17 at 05:45; Stop 02/02/17 at 05: 46; Status DC Sodium Bicarbonate (Sodium Bicarbonate 8.4% Inj) 50 meq ONCE ONCE IV PUSH Last administered on 02/02/17 05:53; Start 02/02/17 at 05:45; Stop 02/02/17 at 05: 46; Status DC Sodium Bicarbonate (Sodium Bicarbonate 8.4% Inj) 50 meq ONCE ONCE IV PUSH Last administered on 02/02/17 05:54; Start 02/02/17 at 05:45; Stop 02/02/17 at 05: 46; Status DC Sodium Bicarbonate (Sodium Bicarbonate 8.4% Inj) 50 meq ONCE ONCE IV PUSH Last administered on 02/02/17 05:55; Start 02/02/17 at 05:45; Stop 02/02/17 at 05: 46; Status DC Pantoprazole Sodium (Protonix Inj) 40 mg BID IV ; Start 02/02/17 at 09:00; Status Cancel Albuterol/ Ipratropium (Duoneb Neb) 1 ampule Q4HR NEB INH Last administered on 02/02/17 08:20; Start 02/02/17 at 08:00 Miscellaneous Information 1 Q361D XX ; Start 02/02/17 at 06:30 Chlorhexidine Gluconate (Chlorhexidine 2% Cloth) 3 pack Taper DAILY@04 TOP ; Start 02/03/17 at 04:00; Stop 01/30/18 at 03:59 Chlorhexidine Gluconate (Chlorhexidine 2% Cloth) 3 pack UNSCH PRN TOP HYGIENIC CARE; Start 02/02/17 at 06:30 Senna/Docusate Sodium ([place]-Colace) 1 tab BID PO ; Start 02/02/17 at 09:00 Magnesium Hydroxide (Milk Of Magnesia Liq) 30 ml Q12H PRN PO MILD - MODERATE CONSTIPATION; Start 02/02/17 at 06:30 Sennosides (Senokot) 17.2 mg Q12H PRN PO MODERATE - SEVERE CONSTIPATION; Start 02/02/17 at 06:30 Bisacodyl (Dulcolax Supp) 10 mg DAILY PRN RECTAL SEVERE CONSITIPATION; Start at 06:30 Lactulose 30 ml 30 ml DAILY PRN PO SEVERE CONSITIPATION; Start 02/02/17 at 06:30 Phytonadione 10 mg/Sodium Chloride 51 ml @ 102 mls/hr ONCE ONCE IV Last administered on 02/02/17 08:15; Start 02/02/17 at 06:30; Stop 02/02/17 at 06:59; Status DC Pantoprazole Sodium/Sodium Chloride (Protonix Inj/NS Inj) 100 ml @ 10 mls/hr Q10H IV Last administered on 02/02/17 09:54; Start 02/02/17 at 07:30 Octreotide Acetate 50 mcg 50 mcg ONCE ONCE IV ; Start 02/02/17 at 06:30; Stop at 06:31; Status Cancel Octreotide Acetate/Sodium Chloride (SandoSTATIN INJ/ NS 500 ml Inj) 500.0 ml @ 50 mls/hr Q10H IV Last administered on 02/02/17 09:53; Start 02/02/17 at 08:30 Insulin Human Regular (NovoLIN R INJ) 10 units ONCE ONCE IV PUSH Last administered on 02/02/17 07:20; Start 02/02/17 at 06:30; Stop 02/02/17 at 06:33; Status DC Dextrose 50 ml 50 ml ONCE ONCE IV PUSH Last administered on 02/02/17 07:20; Start 02/02/17 at 06:30; Stop 02/02/17 at 06:32; Status DC Calcium Gluconate/ Sodium Chloride (Calcium Gluconate Inj/NS Inj) 110 ml @ 110 mls/hr ONCE ONCE IV Last administered on 02/02/17 09:54; Start 02/02/17 at 06: 30; Stop 02/02/17 at 07:29; Status DC Sodium Polystyrene Sulfonate 30 gm 30 gm ONCE ONCE PO ; Start 02/02/17 at 06:30 ; Stop 02/02/17 at 06:35; Status DC Phenylephrine HCl/ Dextrose (Neosynephrine Inj/D5W 500 ml Inj) 500 ml @ 0 mls/ hr TITRATE IV Last administered on 02/02/17 09:48; Start 02/02/17 at 07:30 Terbutaline Sulfate (Brethine Inj) 1 mg UNSCH PRN SQ For Extravasation; Start 02/02/17 at 06:30 Hydrocortisone Sodium Succinate 100 mg 100 mg Q8HR IV PUSH Last administered on 02/02/17 07:20; Start 02/02/17 at 06:30 Piperacillin Sod/ Tazobactam Sod 100 ml @ 200 mls/hr Q6H IV ; Start 02/02/17 at 07:00; Status Cancel Pharmacy Profile Note (Vancomycin Consult Pharmacy) 0 ml @ 0 mls/hr UNSCH OTHER ; Start 02/02/17 at 06:45 Sodium Bicarbonate (Sodium Bicarbonate 8.4% Inj) 100 meq ONCE ONCE IV PUSH Last administered on 02/02/17 06:45; Start 02/02/17 at 06:45; Stop 02/02/17 at 06: 46; Status DC Octreotide Acetate 50 mcg 50 mcg BOLUS ONCE IV Last administered on 02/02/17 08:00; Start 02/02/17 at 08:00; Stop 02/02/17 at 08:01; Status DC Thiamine HCl 100 mg/Sodium Chloride 101 ml @ 101 mls/hr DAILY IV ; Start at 09:00 Sodium Chloride 1,000 ml @ 999 mls/hr BOLUS ONCE IV Last administered on 09:58; Start 02/02/17 at 06:45; Stop 02/02/17 at 07:45; Status DC Sodium Chloride (NS 1000 ml Inj) 1,000 ml @ 999 mls/hr BOLUS ONCE IV Last administered on 02/02/17 09:58; Start 02/02/17 at 06:45; Stop 02/02/17 at 07:45; Status DC Folic Acid (Folate) 1 mg DAILY PO ; Start 02/02/17 at 09:00 Multivitamins (Theragran) 1 tab DAILY PO ; Start 02/02/17 at 09:00 Dextrose (D50w (Vial) Inj) 50 ml UNSCH PRN IV HYPOGLYCEMIA-SEE COMMENTS; Start 02/02/17 at 06:45 Glucagon (Glucagon Inj) 1 mg UNSCH PRN OTHER HYPOGLYCEMIA-SEE COMMENTS; Start 02/02/17 at 06:45 Insulin Human Regular 1 1 Q4H SQ ; Start 02/02/17 at 06:45 Piperacillin Sod/ Tazobactam Sod (Zosyn 2.25 Gm Premix) 50 ml @ 100 mls/hr Q6H IV Last administered on 02/02/17 09:48; Start 02/02/17 at 09:00 Family History Unobtainable from patient. Social History Av abuse. Marijuana use. History of leaving hospital against medical advise back in September. Physical Exam Vital Signs Vital Signs Date Time Temp Pulse Resp B/P Pulse Ox O2 Delivery O2 Flow Rate FiO2 02/02/17 08:00 92 100 02/02/17 08:00 98 100 02/02/17 06:25 0 100 02/02/17 06:05 70/ 02/02/17 04:35 108 60/35 Ventilator Automatic Cuff Manual Cuff/Auscultation 02/02/17 04:21 124 97 Ventilator 02/02/17 04:15 0 100 02/02/17 04:14 63/42 02/02/17 02:26 110 17 79/59 Ventilator 100 02/02/17 02:20 127 16 Ventilator 100 02/02/17 02:10 96 89/45 02/02/17 01:30 0 100 02/02/17 00:42 0 15.00 100 02/01/17 23:45 96 112/66 97 Nasal Cannula 3 02/01/17 23:14 101 24 105/70 97 Nasal Cannula 3 02/01/17 22:50 99 109/53 97 Nasal Cannula 3 02/01/17 22:40 101 86/57 02/01/17 22:29 98 89/64 97 Nasal Cannula 3 02/01/17 21:46 104 143/86 95 Nasal Cannula 3 02/01/17 21:22 97.4 100 124/57 97 Nasal Cannula 3 02/01/17 21:07 108 24 118/55 Nasal Cannula 3 02/01/17 21:02 24 96 Nasal Cannula 3 02/01/17 20:54 107 28 93/52 94 Nasal Cannula 3 02/01/17 20:20 104 22 104/53 93 Nasal Cannula 3 02/01/17 20:14 106 22 98/52 94 Nasal Cannula 3 02/01/17 19:50 107 22 82/74 95 Nasal Cannula 3 02/01/17 19:30 104 24 79/54 90 Nasal Cannula 2 02/01/17 19:08 100 24 81/26 98 Nasal Cannula 3 02/01/17 18:53 100 79/49 96 Nasal Cannula 3 02/01/17 18:40 97.5 107 24 85/50 98 Nasal Cannula 2 02/01/17 18:25 108 24 77/50 98 Nasal Cannula 2 02/01/17 18:15 110 24 84/45 95 Nasal Cannula 2 02/01/17 18:05 102 26 81/45 99 Nasal Cannula 2 02/01/17 17:55 110 26 71/36 98 Nasal Cannula 4 02/01/17 17:35 105 28 63/43 99 Nasal Cannula 4 02/01/17 17:30 98 26 98 Nasal Cannula 4 02/01/17 17:30 97.5 98 26 77/52 98 02/01/17 17:30 98 Nasal Cannula 4 Physical Exam GENERAL: Currently on ventilatory support. Unresponsive to noxious stimuli. SKIN: Warm and dry. HEAD: Normocephalic. EYES: No scleral icterus. No injection or drainage. NECK: Supple, trachea midline. No JVD or lymphadenopathy. CARDIOVASCULAR: Regular rate and rhythm by monitor. Pulses not palpable. Without murmurs, gallops, or rubs. RESPIRATORY: Breath sounds equal bilaterally. No accessory muscle use. GASTROINTESTINAL: Abdomen soft, non-tender, nondistended. MUSCULOSKELETAL: No cyanosis, or edema. BACK: Nontender without obvious deformity. No CVA tenderness. Laboratory Laboratory Tests Test 02/01/17 02/01/17 02/01/17 02/01/17 17:38 19:01 20:48 20:50 Prothrombin Time 36.3 Prothromb Time International 3.1 Ratio Activated Partial 65.0 Thromboplast Time Sodium Level 137 Potassium Level 5.5 Chloride Level 106 Carbon Dioxide Level 6.3 Anion Gap 25 Blood Urea Nitrogen 16 Creatinine 2.00 Estimat Glomerular Filtration 26 Rate Random Glucose 82 Lactic Acid Level 15.6 16.1 Calcium Level 6.0 Protein Corrected Calcium 7.0 Total Bilirubin 6.2 Aspartate Amino Transf 191 (AST/SGOT) Alanine Aminotransferase 31 (ALT/SGPT) Alkaline Phosphatase 112 Total Creatine Kinase 1726 Creatine Kinase MB 29.1 Creatine Kinase MB % 1.7 Troponin I 0.02 Total Protein 5.0 Albumin 1.3 Lipase 136 Acetaminophen Level LESS THAN 2.0 Ethyl Alcohol Level LESS THAN 3 White Blood Count 14.6 Red Blood Count 2.21 Hemoglobin 7.1 Hematocrit 21.6 Mean Corpuscular Volume 97.8 Mean Corpuscular Hemoglobin 32.0 Mean Corpuscular Hemoglobin 32.7 Concent Red Cell Distribution Width 18.2 Platelet Count 91 Mean Platelet Volume 10.2 Neutrophils (%) (Auto) 79.3 Lymphocytes (%) (Auto) 16.6 Monocytes (%) (Auto) 2.6 Eosinophils (%) (Auto) 0.7 Basophils (%) (Auto) 0.8 Neutrophils # (Auto) 11.6 Lymphocytes # (Auto) 2.4 Monocytes # (Auto) 0.4 Eosinophils # (Auto) 0.1 Basophils # (Auto) 0.1 CBC Comment AUTO DIFF Differential Total Cells 100 Counted Neutrophils % (Manual) 64 Band Neutrophils % 10 Lymphocytes % 11 Monocytes % 5 Eosinophils % 1 Basophils % 1 Neutrophils # (Manual) 12.0 Metamyelocytes 7 Myelocytes 1 Differential Comment FINAL DIFF MANUAL Toxic Vacuolation PRESENT Platelet Estimate NORMAL Platelet Morphology Comment ENLARGED Urine Color YELLOW Urine Turbidity CLOUDY Urine pH 5.5 Urine Specific [place] 1.010 Urine Protein 100 Urine Glucose (UA) NEG Urine Ketones NEG Urine Occult Blood LARGE Urine Nitrite NEG Urine Bilirubin NEG Urine Leukocyte Esterase NEG Urine RBC 20-24 Urine WBC 6-8 Urine Squamous Epithelial 0-5 Cells Urine Renal Epithelial Cells 0-5 Urine Bacteria MOD Urine Hyaline Casts 0-2 Urine Fine Granular Casts 3-5 Microscopic Urinalysis Comment CULTURE INDICATED Urine Opiates Screen NEG Urine Barbiturates Screen NEG Urine Amphetamines Screen NEG Urine Benzodiazepines Screen NEG Urine Cocaine Screen NEG Urine Cannabinoids Screen NEG Test 8/07/2102/02/17 02/02/17 02/02/17 01:50 02:32 03:05 04:05 Blood Gas Puncture Site RT FEMORAL Blood Gas Patient Temperature 98.6 Blood Gas HCO3 6 Blood Gas Base Excess -25.8 Blood Gas Oxygen Saturation 97 Arterial Blood pH 6.75 Arterial Blood Partial 43 Pressure CO2 Arterial Blood Partial 353 Pressure O2 Arterial Blood Oxygen Content 6.8 Arterial Blood 0.4 Carboxyhemoglobin Arterial Blood Methemoglobin 1.5 Blood Gas Hemoglobin 4.3 Oxygen Delivery Device VENTILATOR Blood Gas Ventilator Setting AC16/500/5PEEP Blood Gas Inspired Oxygen 100 Blood Type AB POSITIVE AB POSITIVE Antibody Screen NEGATIVE Crossmatch Leukocyte-Reduced Red Blood Cells Blood Bank Comment Test 02/02/17 02/02/17 02/02/17 02/02/17 04:29 05:15 05:22 07:30 Crossmatch Leukocyte-Reduced Red Blood Cells Blood Bank Comment White Blood Count 9.6 Red Blood Count 2.20 Hemoglobin 7.1 Hematocrit 21.7 Mean Corpuscular Volume 98.8 Mean Corpuscular Hemoglobin 32.2 Mean Corpuscular Hemoglobin 32.5 Concent Red Cell Distribution Width 17.6 Platelet Count 58 Mean Platelet Volume 9.2 Neutrophils (%) (Auto) 83.9 Lymphocytes (%) (Auto) 14.6 Monocytes (%) (Auto) 0.4 Eosinophils (%) (Auto) 0.8 Basophils (%) (Auto) 0.3 Neutrophils # (Auto) 8.1 Lymphocytes # (Auto) 1.4 Monocytes # (Auto) 0.0 Eosinophils # (Auto) 0.1 Basophils # (Auto) 0.0 CBC Comment AUTO DIFF Differential Total Cells 100 Counted Neutrophils % (Manual) 36 Band Neutrophils % 27 Lymphocytes % 13 Monocytes % 12 Basophils % 1 Neutrophils # (Manual) 7.1 Metamyelocytes 8 Myelocytes 3 Nucleated Red Blood Cells 4 Differential Comment FINAL DIFF MANUAL Toxic Vacuolation PRESENT Platelet Estimate LOW Platelet Morphology Comment NORMAL Ovalocytes 1+ Zap Cells 1+ Rouleau PRESENT Prothrombin Time 20.6 Prothromb Time International 1.8 Ratio Sodium Level 132 Potassium Level 6.6 Chloride Level 93 Carbon Dioxide Level 8.0 Anion Gap 31 Blood Urea Nitrogen 16 Creatinine 2.60 Estimat Glomerular Filtration 20 Rate Random Glucose 283 Lactic Acid Level 21.0 Calcium Level 6.2 Protein Corrected Calcium 7.6 Magnesium Level 3.8 Total Bilirubin 5.6 Aspartate Amino Transf 1727 (AST/SGOT) Alanine Aminotransferase 176 (ALT/SGPT) Alkaline Phosphatase 417 Total Protein 4.3 Albumin 1.1 Blood Gas Puncture Site ART LINE LT FEMORAL Blood Gas Patient Temperature 98.6 98.6 Blood Gas HCO3 7 9 Blood Gas Base Excess -24.5 -21.7 Blood Gas Oxygen Saturation 93 52 Arterial Blood pH 6.81 6.85 Arterial Blood Partial 44 55 Pressure CO2 Arterial Blood Partial 133 45 Pressure O2 Arterial Blood Oxygen Content 9.3 4.8 Arterial Blood 0.4 0.9 Carboxyhemoglobin Arterial Blood Methemoglobin 1.6 1.7 Blood Gas Hemoglobin 6.9 6.5 Oxygen Delivery Device VENTILATOR VENTILATOR Blood Gas Ventilator Setting AC16/500/5PEEP AC/24/550/5PEEP Blood Gas Inspired Oxygen 100 100 Test 02/02/17 02/02/17 09:00 09:26 White Blood Count 8.8 Red Blood Count 2.17 Hemoglobin 7.0 Hematocrit 21.1 Mean Corpuscular Volume 97.3 Mean Corpuscular Hemoglobin 32.3 Mean Corpuscular Hemoglobin 33.2 Concent Red Cell Distribution Width 18.0 Platelet Count 31 Mean Platelet Volume 9.9 Neutrophils (%) (Auto) Lymphocytes (%) (Auto) Monocytes (%) (Auto) Eosinophils (%) (Auto) Basophils (%) (Auto) Neutrophils # (Auto) Lymphocytes # (Auto) Monocytes # (Auto) Eosinophils # (Auto) Basophils # (Auto) CBC Comment AUTO DIFF Differential Total Cells 100 Counted Neutrophils % (Manual) 33 Band Neutrophils % 29 Lymphocytes % 21 Monocytes % 11 Neutrophils # (Manual) 6.0 Metamyelocytes 4 Myelocytes 2 Nucleated Red Blood Cells 4 Differential Comment FINAL DIFF MANUAL Toxic Granulation 1+ Toxic Vacuolation PRESENT Platelet Estimate LOW Platelet Morphology Comment NORMAL Ovalocytes 1+ Rouleau PRESENT Keratocytes OCC Sodium Level 136 Potassium Level 6.2 Chloride Level 95 Carbon Dioxide Level 8.5 Anion Gap 33 Blood Urea Nitrogen 18 Creatinine 2.70 Estimat Glomerular Filtration 19 Rate Random Glucose 233 Calcium Level 6.6 Protein Corrected Calcium 8.1 Total Bilirubin 5.2 Alanine Aminotransferase 239 (ALT/SGPT) Alkaline Phosphatase 496 Ammonia 723 Total Protein 4.3 Albumin 1.4 Blood Gas Puncture Site LT FEMORAL Blood Gas Patient Temperature 37.0 Blood Gas HCO3 6 Blood Gas Base Excess -24.2 Blood Gas Oxygen Saturation 96 Arterial Blood pH 6.91 Arterial Blood Partial 30 Pressure CO2 Arterial Blood Partial 178 Pressure O2 Arterial Blood Oxygen Content 9.4 Arterial Blood 0.5 Carboxyhemoglobin Arterial Blood Methemoglobin 1.7 Blood Gas Hemoglobin 6.6 Oxygen Delivery Device VENTILATOR Blood Gas Ventilator Setting AC/24/550/5PEEP Blood Gas Inspired Oxygen 100 Date/Time Procedure Status Source Growth 02/01/17 20:50 Urine Culture Received Urine Clean Catch Pending 02/01/17 20:50 Aerobic Blood Culture Received Blood Peripheral Pending 02/01/17 20:50 Anaerobic Blood Culture Received Blood Peripheral Pending Result Diagram: 02/02/17 0900 02/02/17 0900 Imaging Last 48 hours Impressions Chest X-Ray 02/02/17 0000 Signed Impressions: Service Date/Time: Thursday, February 02, 2017 03:16 - CONCLUSION: 1. Interval placement of endotracheal tube with the tip just above the mimi. 2. new mild patchy opacity at the left lung base. Francisco Lamb MD Abdomen Ultrasound 02/02/17 0000 Signed Impressions: Service Date/Time: Thursday, February 02, 2017 09:29 - CONCLUSION: 1. Liver cirrhosis with portal hypertension and reversal of flow direction within the portal vein. 2. Gallbladder sludge. 3. Minimal ascites. Sotero Darling MD Head CT [id number]/[id number] Signed Impressions: Service Date/Time: Wednesday, February 01, 2017 19:32 - CONCLUSION: Negative noncontrast CT brain. Meet Martinez MD Chest X-Ray [id number] Signed Impressions: Service Date/Time: Wednesday, February 01, 2017 17:51 - CONCLUSION: Slight perivascular pulmonary edema. Charbel Cast MD Assessment and Plan Problem List: (1) Acute renal failure Plan: Acute renal failure secondary to shock possibly septic. Patient remains severely hypotensive despite 3 inotropic agents. Also history of cardiac arrest since presentation. Given the patient's current clinical condition I do not believe that she would tolerate dialytic support and I also do not believe it would alter this patient' s apparent terminal condition. As discussed with critical care I believe current medical management for patient 's metabolic acidosis and hyperkalemia should continue. Potassium level has improved slightly. Regardless I believe that this patient is essentially terminal and DNR CODE STATUS is appropriate. Medications should be adjusted for the patient's estimated GFR if clinically indicated. Avoid agents with significant potential for nephrotoxicity possible including NSAIDs for analgesia, iodine contrast agents. Gadolinium is contraindicated if the GFR is below 30. (2) Metabolic acidosis Plan: Secondary to shock syndrome with lactic acidosis. We'll defer management to critical care. Continue bicarbonate drip. (3) Hyperkalemia Plan: Improved with medical management. Continue bicarbonate. Regardless however the patient appears to be terminal clinically. As indicated above do not believe patient will tolerate dialysis nor will it alter the patient's grim prognosis. (4) Alcohol abuse Plan: Ongoing. Abrahan Michele MD Feb 02, 2017 10:24
--- NOTE | 2017-02-02 14:30 | PD.CONS ---
Consult Service Palliative Care . Consult Requested By Dr. Schuler . Primary Care Physician No Primary Care Physician . Reason for Consultation a. To assist with evaluation and management of symptoms including: pain; dyspnea; encephalopathy b. To assist medical decision maker(s) with: better understanding of current medical conditions; weighing benefits/burdens of medical treatment options; making medical treatment decisions. . HPI History of Present Illness Ms. Lisa is a 51-year-old female with a known past history of alcohol abuse; tobacco abuse; and seizure disorder who was brought to the emergency department by paramedics on 02/01/17 after her roommates stated she collapsed to the ground and that her body "shook like a seizure." On EMS arrival, they found her with systolic blood pressure in the 60s, and a glucose of 37. The patient was given D50 intravenously and IV fluids by the paramedics. The patient had last been hospitalized here from 08/26/2016 through 08/27/2016 for what was probably an alcohol-based seizure. At that time she was also noted to have hypokalemia and hypomagnesemia. The patient departed from the hospital AGAINST MEDICAL ADVICE on 08/27/2016. When the patient arrived in the emergency department on 02/01/17 she was awake and alert with normal speech, appropriate mood and affect, and normal insight and judgment per the notation of the emergency room physician. She was jaundiced. Cardiovascular and respiratory exams were unremarkable. Her abdomen was distended consistent with possible ascites. Initial vital signs in the emergency department were as follows > temperature 97.5; pulse 107; respiratory rate 28; blood pressure 93/52; pulse oximetry 94% on O2 via nasal cannula at 3 L a minute. Initial diagnostic testing revealed the following: * CBC showed WBC 14.6; hemoglobin 7.1; platelet count 91; MCV 97.8. There were 10% band neutrophils. * Coagulation profile showed PT 36.3 and INR of 3.1 * Chemistry profile showed sodium 137; potassium 5.5; chloride 106; CO2 6.3; anion gap 25; BUN 16; creatinine 2.0; GFR 26; glucose 82; lactic acid 15.6; calcium 6.0; protein corrected calcium 7.0 * Liver function tests showed total bilirubin 6.2; AST 191; ALT 31; alkaline phosphatase 112; total protein 5.0; albumin 1.3 * Cardiac serology showed total CK 1726; CK-MB 29.1; CK-MB percent 1.7; troponin 0.02 * Acetaminophen level was less than 2.0 * Ethyl alcohol level was less than 3 * Urinalysis was remarkable for large occult blood; 20-24 RBCs; 6-8 WBCs; moderate bacteria. * CT of the brain was negative for any acute intracranial process * Urine drug screen was negative for benzos, cocaine, and amphetamines Systolic blood pressure had fallen as low as the 70s in the emergency department. The patient was given IV fluids and a central line was placed to meet treatment needs. The patient received supplemental calcium, dextrose, normal saline, intravenous antibiotics, and was started on both norepinephrine and dopamine drips. The patient's pressure went up to 100 systolic but subsequently fell and respirations became agonal. A code was called and CPR was started. The patient was intubated and ACLS protocol began. Though there was return of spontaneous circulation the patient remained unresponsive and pupils became unreactive. Mottling was noted. The patient required maximum dopamine and norepinephrine drips for maintaining her blood pressure. An epinephrine drip was also started. Post intubation arterial blood gases showed severe metabolic acidosis with a pH of 6.75; CO2 43; PaO2 of 353; bicarbonate of 6. Hemoglobin, on the ABGs was noted to be 4.3. A postintubation chest x-ray showed mild opacity at the left lung base. The patient went into cardiac arrest again overnight. At time of my visit this morning, patient remains unresponsive, intubated, mechanically ventilated, in the medical ICU. She has essentially undetectable pulses in spite of ongoing pressor support. Pupils are fixed and dilated. In addition to critical care, nephrology has seen the patient. Both agree that the patient is terminal with multiorgan failure and will not survive the ICU in spite of aggressive care. Patient's is at the bedside. . Critical care was consulted. The patient was transferred to the medical intensive care unit. Function/Cognitive Trajectory The patient's is able to tell me that Ms. Lisa had been taking care of all of her activities of daily living and ambulating without any type of assistive device until about 2 weeks ago. Over the last 2 weeks she has been more fatigued and spending more time in bed. She was beginning to "say some things that did not make sense." She complained of some pain but couldn't specify what type of pain or where. The patient and her are trying to move to a new home around this time and he thought much of this was from stress. . Review of Systems ROS Limitations: Clinical Condition, Intubated, Unresponsive (patient is unresponsive, intubated, mechanically intubated in the ICU and is unable to provide review of systems. Review of systems was obtained as well as possible from the patient's and medical records.) Constitutional: COMPLAINS OF: Fatigue, Change in appetite, Pain, Generalized weakness, DENIES: Fever, Weight gain, Weight loss Endocrine: DENIES: Polydipsia, Polyuria, Polyphagia Eyes: COMPLAINS OF: Vision loss Ears, nose, mouth, throat: DENIES: Tinnitus, Hearing loss Respiratory: COMPLAINS OF: Shortness of breath Neurologic: COMPLAINS OF: Seizures Past Family Social History Coded Allergies: No Known Allergies (Unverified , 02/01/17) Past Medical History * Alcohol abuse * tobacco abuse * Seizure disorder . Past Surgical History * Appendectomy * section x 2 . Reported Medications None . Current Medications Medications (Trade) Dose Ordered Sig/Cedrick Route Start Time Stop Time Status Last Admin Norepinephrine Bitartrate 250 ml @ 0 mls/hr TITRATE IV 02/01/17 17:45 02/02/17 12:12 Dextrose 1,000 ml @ 100 mls/hr Q10H IV 02/01/17 18:15 02/02/17 09:53 (DOPamine INJ PREMIX) 500 ml @ 7.65 mls/hr TITRATE IV 02/01/17 19:30 02/02/17 12:12 Terbutaline Sulfate 1 mg 1 mg UNSCH PRN SQ 02/01/17 19:30 Epinephrine HCl 2 mg/Dextrose 250 ml @ 22.5 mls/hr TITRATE IV 02/02/17 04:15 02/02/17 10:43 Sodium Bicarbonate 150 meq/Dextrose 1,150 ml @ 150 mls/hr Q7H40M IV 02/02/17 03:00 02/02/17 09:52 (NS 250 ml Inj) 250 ml @ 15 mls/hr ONCE ONCE IV 02/02/17 03:00 02/02/17 19:39 Miscellaneous Information 1 Q361D XX 02/02/17 06:30 (Chlorhexidine 2% Cloth) 3 pack Taper DAILY@04 TOP 02/03/17 04:00 01/30/18 03:59 (Chlorhexidine 2% Cloth) 3 pack UNSCH PRN TOP 02/02/17 06:30 (Susannah-Colace) 1 tab BID PO 02/02/17 09:00 (Milk Of Magnesia Liq) 30 ml Q12H PRN PO 02/02/17 06:30 (Senokot) 17.2 mg Q12H PRN PO 02/02/17 06:30 (Dulcolax Supp) 10 mg DAILY PRN RECTAL 02/02/17 06:30 Lactulose 30 ml 30 ml DAILY PRN PO 02/02/17 06:30 Pantoprazole Sodium 80 mg/ Sodium Chloride 100 ml @ 10 mls/hr Q10H IV 02/02/17 07:30 02/02/17 09:54 Octreotide Acetate 500 mcg/ Sodium Chloride 500.0 ml @ 50 mls/hr Q10H IV 02/02/17 08:30 02/02/17 09:53 (Neosynephrine Inj/D5W 500 ml Inj) 500 ml @ 0 mls/hr TITRATE IV 02/02/17 07:30 02/02/17 09:48 (Brethine Inj) 1 mg UNSCH PRN SQ 02/02/17 06:30 Hydrocortisone Sodium Succinate 100 mg 100 mg Q8HR IV PUSH 02/02/17 06:30 02/02/17 07:20 Pharmacy Profile Note 0 ml @ 0 mls/hr UNSCH OTHER 02/02/17 06:45 (Thiamine Inj/NS Inj) 101 ml @ 101 mls/hr DAILY IV 02/02/17 09:00 02/02/17 10:47 (Folate) 1 mg DAILY PO 02/02/17 09:00 (Theragran) 1 tab DAILY PO 02/02/17 09:00 (D50w (Vial) Inj) 50 ml UNSCH PRN IV 02/02/17 06:45 (Glucagon Inj) 1 mg UNSCH PRN OTHER 02/02/17 06:45 Insulin Human Regular 1 1 Q4H SQ 02/02/17 06:45 (Zosyn 2.25 Gm Premix) 50 ml @ 100 mls/hr Q6H IV 02/02/17 09:00 02/02/17 09:48 . Family History * did not know any information on family health history * Old records indicate that the patient has 2 brothers with diabetes mellitus . Substance Use Tobacco: Has smoked approximately one pack per day for most of her adult life Alcohol: Long history of alcohol abuse. reports that recent consumption was approximately 2-3 shots of hard liquor a day as well as 3-4 beers per day Prescription med abuse: No known prescription drug abuse Illicits: Records indicate a past history of marijuana use . Psychosocial History Patient is originally from [place]. She has lived in [place] for approximately 10 years. She is a high school graduate. She is worked primarily as a senior bookkeeper. No experience. Patient has been 3 times. She has been to her current approximately 8-10 years. She has 2 sons from a prior marriage who live in [place]. Parents are . believes she has 2 brothers and 2 or 3 sisters most of whom are thought to live in [place]. . Spiritual/Cultural Factors tells me the patient identified herself as an ACS. The has excepted manager branch support for himself and Elephant Tamerjosé Magdaleno has already met with him. . Living Will: Never completed Health Care Surrogate: Never completed Durable Power of Apron Cleaner: Never completed Date completed: Advance directives were not completed. . Health Care Surrogate(s): No written designation of health care surrogate. . Documented care wishes: No written documentation of health care preferences or goals. . Today's verbally stated goals: Patient is unresponsive and has no reasonable probability of becoming responsive. She is unable to verbally state her goals. . Family/friends goals: Patient's is very aware that the best of medical technology and medications might be able to prolong her dying process, but will not result in any type of meaningful recovery. . Ethical and Legal Issues Patient is incapacitated and there is no reasonable medical probability of regaining capacity. There is no written designation of health care surrogate. Healthcare decision-making under the [place] statutes would fall to her as proxy. . Physical Exam Vital Signs Date Time Temp Pulse Resp B/P Pulse Ox O2 Delivery O2 Flow Rate FiO2 02/02/17 11:22 99 100 02/02/17 08:00 92 100 02/02/17 08:00 98 100 02/02/17 06:25 0 100 02/02/17 06:05 70/ 02/02/17 04:35 108 60/35 Ventilator Automatic Cuff Manual Cuff/Auscultation 02/02/17 04:21 124 97 Ventilator 02/02/17 04:15 0 100 02/02/17 04:14 63/42 02/02/17 02:26 110 17 79/59 Ventilator 100 02/02/17 02:20 127 16 Ventilator 100 02/02/17 02:10 96 89/45 02/02/17 01:30 0 100 02/02/17 00:42 0 15.00 100 02/01/17 23:45 96 112/66 97 Nasal Cannula 3 02/01/17 23:14 101 24 105/70 97 Nasal Cannula 3 02/01/17 22:50 99 109/53 97 Nasal Cannula 3 02/01/17 22:40 101 86/57 02/01/17 22:29 98 89/64 97 Nasal Cannula 3 02/01/17 21:46 104 143/86 95 Nasal Cannula 3 02/01/17 21:22 97.4 100 124/57 97 Nasal Cannula 3 02/01/17 21:07 108 24 118/55 Nasal Cannula 3 02/01/17 21:02 24 96 Nasal Cannula 3 02/01/17 20:54 107 28 93/52 94 Nasal Cannula 3 02/01/17 20:20 104 22 104/53 93 Nasal Cannula 3 02/01/17 20:14 106 22 98/52 94 Nasal Cannula 3 02/01/17 19:50 107 22 82/74 95 Nasal Cannula 3 02/01/17 19:30 104 24 79/54 90 Nasal Cannula 2 02/01/17 19:08 100 24 81/26 98 Nasal Cannula 3 02/01/17 18:53 100 79/49 96 Nasal Cannula 3 02/01/17 18:40 97.5 107 24 85/50 98 Nasal Cannula 2 02/01/17 18:25 108 24 77/50 98 Nasal Cannula 2 02/01/17 18:15 110 24 84/45 95 Nasal Cannula 2 02/01/17 18:05 102 26 81/45 99 Nasal Cannula 2 02/01/17 17:55 110 26 71/36 98 Nasal Cannula 4 02/01/17 17:35 105 28 63/43 99 Nasal Cannula 4 02/01/17 17:30 98 26 98 Nasal Cannula 4 02/01/17 17:30 97.5 98 26 77/52 98 02/01/17 17:30 98 Nasal Cannula 4 . 02/01/17 02/02/17 19:00 07:00 Intake Total 4412 ml Balance 4412 ml Intake IV Total 2450 ml Packed Cells 750 ml FFP 1212 ml # Voids 0 . Exam CONSTITUTIONAL/GENERAL: This is an adequately nourished patient, unresponsive, intubated, mechanically ventilated in the medical intensive care unit. TUBES/LINES/DRAINS: Peripheral IV left wrist; peripheral IV right wrist; right femoral triple-lumen central line; peripheral IV left antecubital space; orotracheal tube; orogastric tube; Salas catheter SKIN: Visible jaundice. Skin color also ashen. Hands are cool to touch. Not diaphoretic. HEAD: Atraumatic. Normocephalic. EYES: Pupils are fixed and dilated. No extraocular motions noted. There is scleral icterus and conjunctival injection. Fundi not examined. ENT: There is dried blood around mouth and nose. Unable to assess hearing. Oropharynx difficult to visualize due to intubations but dry blood is visible. NECK: Trachea midline. No palpable thyroid enlargement or nodularity. CARDIOVASCULAR: Regular rate and rhythm without murmurs, gallops, or rubs. No JVD. Unable to palpate peripheral pulses. RESPIRATORY/CHEST: Symmetric, unlabored respirations. Scattered rhonchi. Breath sounds equal bilaterally. No wheezes. GASTROINTESTINAL: Abdomen distended, moderately firm. No discrete organomegaly or masses but palpation is challenging due to level of distention. No guarding. Bowel sounds hypoactive. GENITOURINARY: Without palpable bladder distension. Salas catheter in place. MUSCULOSKELETAL: Extremities without edema. Some mottling is noted. No calf tenderness. No clubbing. LYMPHATICS: No palpable cervical or supraclavicular adenopathy. NEUROLOGICAL: Unresponsive. Pupils fixed and dilated. Does not withdraw to noxious stimulus. PSYCHIATRIC: Unable to assess due to level of responsiveness. . Diagnostic Tests Laboratory Laboratory Tests Test 02/01/17 02/01/17 02/01/17 02/01/17 17:38 19:01 20:48 20:50 Prothrombin Time 36.3 SEC (9.8-11.6) Prothromb Time International 3.1 RATIO Ratio Activated Partial 65.0 SEC Thromboplast Time (24.3-30.1) Sodium Level 137 MEQ/L (136-145) Potassium Level 5.5 MEQ/L (3.5-5.1) Chloride Level 106 MEQ/L (98-107) Carbon Dioxide Level 6.3 MEQ/L (21.0-32.0) Anion Gap 25 MEQ/L (5-15) Blood Urea Nitrogen 16 MG/DL (7-18) Creatinine 2.00 MG/DL (0.50-1.00) Estimat Glomerular Filtration 26 ML/MIN (>89) Rate Random Glucose 82 MG/DL (74-106) Lactic Acid Level 15.6 mmol/L 16.1 mmol/L (0.4-2.0) (0.4-2.0) Calcium Level 6.0 MG/DL (8.5-10.1) Protein Corrected Calcium 7.0 MG/DL (8.5-10.1) Total Bilirubin 6.2 MG/DL (0.2-1.0) Aspartate Amino Transf 191 U/L (15-37) (AST/SGOT) Alanine Aminotransferase 31 U/L (10-53) (ALT/SGPT) Alkaline Phosphatase 112 U/L (45-117) Total Creatine Kinase 1726 U/L (26-192) Creatine Kinase MB 29.1 NG/ML (0.5-3.6) Creatine Kinase MB % 1.7 % (0.0-4.0) Troponin I 0.02 NG/ML (0.02-0.05) Total Protein 5.0 GM/DL (6.4-8.2) Albumin 1.3 GM/DL (3.4-5.0) Lipase 136 U/L (73-393) Acetaminophen Level LESS THAN 2.0 MCG/ML (10.0-30.0) Ethyl Alcohol Level LESS THAN 3 MG/DL (0-5) Salicylates Level LESS THAN 1.7 MG/DL (2.8-20.0) White Blood Count 14.6 TH/MM3 (4.0-11.0) Red Blood Count 2.21 MIL/MM3 (4.00-5.30) Hemoglobin 7.1 GM/DL (11.6-15.3) Hematocrit 21.6 % (35.0-46.0) Mean Corpuscular Volume 97.8 FL (80.0-100.0) Mean Corpuscular Hemoglobin 32.0 PG (27.0-34.0) Mean Corpuscular Hemoglobin 32.7 % Concent (32.0-36.0) Red Cell Distribution Width 18.2 % (11.6-17.2) Platelet Count 91 TH/MM3 (150-450) Mean Platelet Volume 10.2 FL (7.0-11.0) Neutrophils (%) (Auto) 79.3 % (16.0-70.0) Lymphocytes (%) (Auto) 16.6 % (9.0-44.0) Monocytes (%) (Auto) 2.6 % (0.0-8.0) Eosinophils (%) (Auto) 0.7 % (0.0-4.0) Basophils (%) (Auto) 0.8 % (0.0-2.0) Neutrophils # (Auto) 11.6 TH/MM3 (1.8-7.7) Lymphocytes # (Auto) 2.4 TH/MM3 (1.0-4.8) Monocytes # (Auto) 0.4 TH/MM3 (0-0.9) Eosinophils # (Auto) 0.1 TH/MM3 (0-0.4) Basophils # (Auto) 0.1 TH/MM3 (0-0.2) CBC Comment AUTO DIFF Differential Total Cells 100 Counted Neutrophils % (Manual) 64 % (16-70) Band Neutrophils % 10 % (0-6) Lymphocytes % 11 % (9-44) Monocytes % 5 % (0-8) Eosinophils % 1 % (0-4) Basophils % 1 % (0-2) Neutrophils # (Manual) 12.0 TH/MM3 (1.8-7.7) Metamyelocytes 7 % (0-1) Myelocytes 1 % (0-0) Differential Comment FINAL DIFF MANUAL Toxic Vacuolation PRESENT (NONE SEEN) Platelet Estimate NORMAL (NORMAL) Platelet Morphology Comment ENLARGED (NORMAL) Urine Opiates Screen NEG (NEG) Urine Barbiturates Screen NEG (NEG) Urine Amphetamines Screen NEG (NEG) Urine Benzodiazepines Screen NEG (NEG) Urine Cocaine Screen NEG (NEG) Urine Cannabinoids Screen NEG (NEG) Urine Color YELLOW (YELLW/STRAW) Urine Turbidity CLOUDY (CLEAR) Urine pH 5.5 (5.0-8.5) Urine Specific [place] 1.010 (1.002-1.035) Urine Protein 100 mg/dL (NEG-TRACE) Urine Glucose (UA) NEG mg/dL (NEG) Urine Ketones NEG mg/dL (NEG) Urine Occult Blood LARGE (NEG) Urine Nitrite NEG (NEG) Urine Bilirubin NEG (NEG) Urine Leukocyte Esterase NEG (NEG) Urine RBC 20-24 /hpf (0-3) Urine WBC 6-8 /hpf (0-5) Urine Squamous Epithelial 0-5 /hpf (0-5) Cells Urine Renal Epithelial Cells 0-5 /hpf (NONE) Urine Bacteria MOD /hpf (NONE) Urine Hyaline Casts 0-2 /lpf (RARE) Urine Fine Granular Casts 3-5 /lpf (NONE) Microscopic Urinalysis Comment CULTURE INDICATED Test 02/02/17 02/02/17 02/02/17 02/02/17 01:50 02:32 03:05 04:05 Blood Gas Puncture Site RT FEMORAL Blood Gas Patient Temperature 98.6 Blood Gas HCO3 6 mmol/L (22-26) Blood Gas Base Excess -25.8 mmol/L (-2-2) Blood Gas Oxygen Saturation 97 % (90-100) Arterial Blood pH 6.75 (7.380-7.420) Arterial Blood Partial 43 mmHG (38-42) Pressure CO2 Arterial Blood Partial 353 mmHG Pressure O2 (61-120) Arterial Blood Oxygen Content 6.8 Vol % (12.0-20.0) Arterial Blood 0.4 % (0-4) Carboxyhemoglobin Arterial Blood Methemoglobin 1.5 % (0-2) Blood Gas Hemoglobin 4.3 G/DL (12.0-16.0) Oxygen Delivery Device VENTILATOR Blood Gas Ventilator Setting AC16/500/5PEEP Blood Gas Inspired Oxygen 100 % Blood Type AB POSITIVE AB POSITIVE Antibody Screen NEGATIVE Crossmatch Leukocyte-Reduced Red Blood Cells Blood Bank Comment Test 02/02/17 02/02/17 02/02/17 02/02/17 04:29 05:15 05:22 07:30 Crossmatch Leukocyte-Reduced Red Blood Cells Blood Bank Comment White Blood Count 9.6 TH/MM3 (4.0-11.0) Red Blood Count 2.20 MIL/MM3 (4.00-5.30) Hemoglobin 7.1 GM/DL (11.6-15.3) Hematocrit 21.7 % (35.0-46.0) Mean Corpuscular Volume 98.8 FL (80.0-100.0) Mean Corpuscular Hemoglobin 32.2 PG (27.0-34.0) Mean Corpuscular Hemoglobin 32.5 % Concent (32.0-36.0) Red Cell Distribution Width 17.6 % (11.6-17.2) Platelet Count 58 TH/MM3 (150-450) Mean Platelet Volume 9.2 FL (7.0-11.0) Neutrophils (%) (Auto) 83.9 % (16.0-70.0) Lymphocytes (%) (Auto) 14.6 % (9.0-44.0) Monocytes (%) (Auto) 0.4 % (0.0-8.0) Eosinophils (%) (Auto) 0.8 % (0.0-4.0) Basophils (%) (Auto) 0.3 % (0.0-2.0) Neutrophils # (Auto) 8.1 TH/MM3 (1.8-7.7) Lymphocytes # (Auto) 1.4 TH/MM3 (1.0-4.8) Monocytes # (Auto) 0.0 TH/MM3 (0-0.9) Eosinophils # (Auto) 0.1 TH/MM3 (0-0.4) Basophils # (Auto) 0.0 TH/MM3 (0-0.2) CBC Comment AUTO DIFF Differential Total Cells 100 Counted Neutrophils % (Manual) 36 % (16-70) Band Neutrophils % 27 % (0-6) Lymphocytes % 13 % (9-44) Monocytes % 12 % (0-8) Basophils % 1 % (0-2) Neutrophils # (Manual) 7.1 TH/MM3 (1.8-7.7) Metamyelocytes 8 % (0-1) Myelocytes 3 % (0-0) Nucleated Red Blood Cells 4 /100 WBC (0-0) Differential Comment FINAL DIFF MANUAL Toxic Vacuolation PRESENT (NONE SEEN) Platelet Estimate LOW (NORMAL) Platelet Morphology Comment NORMAL (NORMAL) Ovalocytes 1+ (NORMAL) Echo Cells 1+ (NORMAL) Rouleau PRESENT (NORMAL) Prothrombin Time 20.6 SEC (9.8-11.6) Prothromb Time International 1.8 RATIO Ratio Sodium Level 132 MEQ/L (136-145) Potassium Level 6.6 MEQ/L (3.5-5.1) Chloride Level 93 MEQ/L (98-107) Carbon Dioxide Level 8.0 MEQ/L (21.0-32.0) Anion Gap 31 MEQ/L (5-15) Blood Urea Nitrogen 16 MG/DL (7-18) Creatinine 2.60 MG/DL (0.50-1.00) Estimat Glomerular Filtration 20 ML/MIN (>89) Rate Random Glucose 283 MG/DL (74-106) Lactic Acid Level 21.0 mmol/L (0.4-2.0) Calcium Level 6.2 MG/DL (8.5-10.1) Protein Corrected Calcium 7.6 MG/DL (8.5-10.1) Magnesium Level 3.8 MG/DL (1.5-2.5) Total Bilirubin 5.6 MG/DL (0.2-1.0) Aspartate Amino Transf 1727 U/L (AST/SGOT) (15-37) Alanine Aminotransferase 176 U/L (10-53) (ALT/SGPT) Alkaline Phosphatase 417 U/L (45-117) Total Protein 4.3 GM/DL (6.4-8.2) Albumin 1.1 GM/DL (3.4-5.0) Blood Gas Puncture Site ART LINE LT FEMORAL Blood Gas Patient Temperature 98.6 98.6 Blood Gas HCO3 7 mmol/L 9 mmol/L (22-26) (22-26) Blood Gas Base Excess -24.5 mmol/L -21.7 mmol/L (-2-2) (-2-2) Blood Gas Oxygen Saturation 93 % (90-100) 52 % (90-100) Arterial Blood pH 6.81 6.85 (7.380-7.420) (7.380-7.420) Arterial Blood Partial 44 mmHG (38-42) 55 mmHG (38-42) Pressure CO2 Arterial Blood Partial 133 mmHG 45 mmHG Pressure O2 (61-120) (61-120) Arterial Blood Oxygen Content 9.3 Vol % 4.8 Vol % (12.0-20.0) (12.0-20.0) Arterial Blood 0.4 % (0-4) 0.9 % (0-4) Carboxyhemoglobin Arterial Blood Methemoglobin 1.6 % (0-2) 1.7 % (0-2) Blood Gas Hemoglobin 6.9 G/DL 6.5 G/DL (12.0-16.0) (12.0-16.0) Oxygen Delivery Device VENTILATOR VENTILATOR Blood Gas Ventilator Setting AC16/500/5PEEP AC/24/550/5PEEP Blood Gas Inspired Oxygen 100 % 100 % Test 02/02/17 02/02/17 09:00 09:26 White Blood Count 8.8 TH/MM3 (4.0-11.0) Red Blood Count 2.17 MIL/MM3 (4.00-5.30) Hemoglobin 7.0 GM/DL (11.6-15.3) Hematocrit 21.1 % (35.0-46.0) Mean Corpuscular Volume 97.3 FL (80.0-100.0) Mean Corpuscular Hemoglobin 32.3 PG (27.0-34.0) Mean Corpuscular Hemoglobin 33.2 % Concent (32.0-36.0) Red Cell Distribution Width 18.0 % (11.6-17.2) Platelet Count 31 TH/MM3 (150-450) Mean Platelet Volume 9.9 FL (7.0-11.0) Neutrophils (%) (Auto) % (16.0-70.0) Lymphocytes (%) (Auto) % (9.0-44.0) Monocytes (%) (Auto) % (0.0-8.0) Eosinophils (%) (Auto) % (0.0-4.0) Basophils (%) (Auto) % (0.0-2.0) Neutrophils # (Auto) TH/MM3 (1.8-7.7) Lymphocytes # (Auto) TH/MM3 (1.0-4.8) Monocytes # (Auto) TH/MM3 (0-0.9) Eosinophils # (Auto) TH/MM3 (0-0.4) Basophils # (Auto) TH/MM3 (0-0.2) CBC Comment AUTO DIFF Differential Total Cells 100 Counted Neutrophils % (Manual) 33 % (16-70) Band Neutrophils % 29 % (0-6) Lymphocytes % 21 % (9-44) Monocytes % 11 % (0-8) Neutrophils # (Manual) 6.0 TH/MM3 (1.8-7.7) Metamyelocytes 4 % (0-1) Myelocytes 2 % (0-0) Nucleated Red Blood Cells 4 /100 WBC (0-0) Differential Comment FINAL DIFF MANUAL Toxic Granulation 1+ (NORMAL) Toxic Vacuolation PRESENT (NONE SEEN) Platelet Estimate LOW (NORMAL) Platelet Morphology Comment NORMAL (NORMAL) Ovalocytes 1+ (NORMAL) Rouleau PRESENT (NORMAL) Keratocytes OCC (NORMAL) Fibrinogen 87 mg/dL (227-377) Sodium Level 136 MEQ/L (136-145) Potassium Level 6.2 MEQ/L (3.5-5.1) Chloride Level 95 MEQ/L (98-107) Carbon Dioxide Level 8.5 MEQ/L (21.0-32.0) Anion Gap 33 MEQ/L (5-15) Blood Urea Nitrogen 18 MG/DL (7-18) Creatinine 2.70 MG/DL (0.50-1.00) Estimat Glomerular Filtration 19 ML/MIN (>89) Rate Random Glucose 233 MG/DL (74-106) Calcium Level 6.6 MG/DL (8.5-10.1) Protein Corrected Calcium 8.1 MG/DL (8.5-10.1) Total Bilirubin 5.2 MG/DL (0.2-1.0) Aspartate Amino Transf 2816 U/L (AST/SGOT) (15-37) Alanine Aminotransferase 239 U/L (10-53) (ALT/SGPT) Alkaline Phosphatase 496 U/L (45-117) Ammonia 723 MCMOL/L (11-32) Total Protein 4.3 GM/DL (6.4-8.2) Albumin 1.4 GM/DL (3.4-5.0) Blood Gas Puncture Site LT FEMORAL Blood Gas Patient Temperature 37.0 Blood Gas HCO3 6 mmol/L (22-26) Blood Gas Base Excess -24.2 mmol/L (-2-2) Blood Gas Oxygen Saturation 96 % (90-100) Arterial Blood pH 6.91 (7.380-7.420) Arterial Blood Partial 30 mmHg (38-42) Pressure CO2 Arterial Blood Partial 178 mmHg Pressure O2 (61-120) Arterial Blood Oxygen Content 9.4 Vol % (12.0-20.0) Arterial Blood 0.5 % (0-4) Carboxyhemoglobin Arterial Blood Methemoglobin 1.7 % (0-2) Blood Gas Hemoglobin 6.6 G/DL (12.0-16.0) Oxygen Delivery Device VENTILATOR Blood Gas Ventilator Setting AC/24/550/5PEEP Blood Gas Inspired Oxygen 100 % . Result Diagram: 02/02/17 0900 02/02/17 0900 Microbiology Microbiology Date/Time Procedure Status Source Growth 02/01/17 20:45 Aerobic Blood Culture - Preliminary Resulted Blood Peripheral Gram Negative Yon 02/01/17 20:45 Anaerobic Blood Culture - Preliminary Resulted Blood Peripheral NO GROWTH IN 1 DAY 02/01/17 20:50 Aerobic Blood Culture - Preliminary Resulted Blood Peripheral NO GROWTH IN 1 DAY 02/01/17 20:50 Anaerobic Blood Culture - Preliminary Resulted Blood Peripheral NO GROWTH IN 1 DAY 02/01/17 20:50 Urine Culture - Preliminary Resulted Urine Clean Catch Gram Negative Yon . Imaging Last Impressions Chest X-Ray 02/02/17 0000 Signed Impressions: Service Date/Time: Thursday, February 02, 2017 03:16 - CONCLUSION: 1. Interval placement of endotracheal tube with the tip just above the mimi. 2. new mild patchy opacity at the left lung base. Francisco Lamb MD Abdomen Ultrasound 02/02/17 0000 Signed Impressions: Service Date/Time: Thursday, February 02, 2017 09:29 - CONCLUSION: 1. Liver cirrhosis with portal hypertension and reversal of flow direction within the portal vein. 2. Gallbladder sludge. 3. Minimal ascites. Sotero Darling MD Head CT 02/01/17 1739 Signed Impressions: Service Date/Time: Wednesday, February 01, 2017 19:32 - CONCLUSION: Negative noncontrast CT brain. Meet Martinez MD . Procedures * Intubation/mechanical ventilation * Central line placement . Patient/Family Conference Present at Family Conference: -- Ronald rPado . Family Conference Time (mins): 50 Family Conference Location: Consult Room Issues Discussed: * Palliative care role, purpose, approach * Additional medical, psychosocial, and spiritual history * Patients general health, functional status, and cognitive changes in the months leading up to the current hospitalization * Family understanding of the current medical problems * Family understanding of prognosis * Patients goals of care as best understood from conversations and/or values * Current medical treatment options and benefits/burdens of those options * Likely scenarios comparing ongoing aggressive care with a transition to comfort measures only * Questions answered to the best of my ability Patient's clearly understands that his is in multiorgan failure and is dying. He understands that ongoing aggressive care might be able to prolong the dying process but will not be able to return her to any life of meeting and purpose. He understands that is likely within the ICU even in spite of ongoing aggressive care. . Assessment and Plan Disease Oriented Problem List: (1) Cardiac arrest (2) Septic shock (3) Metabolic acidosis (4) Seizure (5) Hyperkalemia (6) Hepatic cirrhosis (7) GI bleed (8) Anemia, blood loss (9) Respiratory failure (10) Acute renal failure Symptom Scale: (1) Pain 0-10 Scale: Unable to quantify Comment: Patient is unresponsive. Wtih fixed dilated pupils, it is unclear if she can experience pain. Possible sources of pain would include the following: Prolonged bedbound status; orotracheal and orogastric intubation; Salas catheter; vascular access lines; abdominal distention. . (2) Dyspnea 0-10 Scale: Unable to quantify Comment: Dyspnea currently being managed via mechanical ventilation. Given patient's fixed, dilated pupils, it is unclear if she is able to experience a sense of breathlessness. . (3) Encephalopathy 0-10 Scale: 10 Comment: Patient is completely unresponsive at this time. Given her fixed, dilated pupils, it appears she has suffered a very substantial neurologic injury from a combination of acidosis, hypoxemia, hypotension, etc. . Pertinent Non-Medical Issues Psychosocial: Local psychosocial support is essentially from her . There are other family members in [place]. Spiritual: Patient has self identified as an atheist. Elephant Tamersalomón Magdaleno has met with the patient's . Legal: No known advance directives. Patient's would be proxy decision- maker under [place] [facility]. Ethical issues impacting care: Patient is incapacitated to make her own medical decisions. There is no reasonable probability that she recovers capacity to do so. . Important Contacts * Ronald Prado (spouse) -- [phone] . Prognosis The patient is suffered a cardiac arrest. She is unable to sustain an adequate systolic blood pressure in spite of pressors or support. She is in multiorgan failure involving heart, lungs, kidneys, liver, and nervous system.. Septic shock is likely at this time. Pupils appear already fixed and dilated.. There has been underlying cirrhosis with both alcohol and tobacco abuse. Given the level of her shock, her prolonged low pH, and hypoxia, the injuries to the multiple organisms appear extreme. There is no reasonable probability of recovery at this point in time. In my clinical opinion, ongoing aggressive care will only serve to prolong a dying process. . Code Status: Alternative Code (intubation only) Plan == Code Status: Alternate code--intubation and pressors only == Decision making: Patient is incapacitated to make her own health care decisions. There is no reasonable probability that she will recover capacity to do so. There is no written designation of health care surrogate. As a result, her husbandRonald Prado -- is the healthcare proxy decision-maker per the [place] statutes. == Goals: The patient's is currently struggling to understand and accept what is happening to his . He understands from the doctors that there is no hope for meaningful recovery and that ongoing aggressive care we'll just serve to prolong a dying process. He believes she would want to be removed from life support. However, he wants to wait for family members to arrive later today to have support available for him at the time. == Pain: Possible sources of patient's pain or discussed above. It is unclear given likely neurologic injury whether or not the patient is able to experience pain. There are no opiate orders at this time. There is understandable concern that opiate use would further lower blood pressure. At such time that the decides on compassionate withdrawal of life support, we will provide comfort medications. == Dyspnea: Currently controlled on mechanical ventilation. As noted above, when goals changed to "comfort measures only," we will provide both opiates and benzodiazepines to address dyspnea. == Encephalopathy: Per 's account, patient was probably developing some hepatic encephalopathy as long ago as 2 weeks. Current level encephalopathy is probably due to neurologic injury from a combination of factors including hypotension, prolonged acidosis, and hypoxia. At this point there is little hope for any improvement in neurologic function. . == Disposition: Patient will likely in the intensive care unit. Should the patient transition to "comfort measures only," and survive, she would certainly be a candidate for the hospice care center if stable enough to transfer. == I have let the patient's know that I'm available to speak to other family members when they arrive later today to explain the current medical condition. == Palliative care we'll continue to follow to assist with symptom management and to further clarify goals of medical treatment as the clinical case evolves. . . Time Spent Total Floor Time (mins): 85 (Total time included chart review; patient examination; above referenced meeting with the patient's ; telephone conversation with the technical sourcing recruiter; collaboration with the primary nurse; collaboration with the hospital contact representative; and documentation.) Face to Face Time (mins): 10 >50% Counseling/Coord of Care: Yes Thank you for the opportunity to participate in the care of Ms. Lisa. . Attestation To help prompt me to consider important information that might be impacting today's encounter and assessment, information from prior notes written by myself or my colleagues may have been "brought forward" into today's note. My signature on this note, however, is an attestation that I personally performed the exam, history, and/or decision-making noted today, and, unless otherwise indicated, the interactions with patient, family, and staff as well as the review of records all occurred today. I also attest that the listed assessment and stated plan reflect my best clinical judgment today based on the combination of historical information, prior notes, and today's exam/ interactions. When time spent is documented, it refers only to time spent today by the signer, or if indicated, combined time spent today by collaborating physician/nurse practitioner. . Sonido Gracia MD Feb 02, 2017 14:30
--- NOTE | 2017-02-02 15:17 | EKG ---
Date Performed: 02/01/2017 Time Performed: 18:26:46 PTAGE: 51 years EKG: UNCERTAIN IRREGULAR RHYTHM MARKED RIGHT AXIS DEVIATION INTRAVENTRICULAR CONDUCTION DELAY MA RKED ST ELEVATION, CONSIDER INFERIOR INJURY ACUTE [place] PREVIOUS TRACING : 08/26/2016 19.22 Right axis deviation new since prior tracing. Intrave ntricular conduction delay new since prior tracing. Clinical correlation is recommended. DOCTOR: Benjamin Turner Interpretating Date/Time 02/02/2017 15:16:55
[2017-02-03] MEDS ORDERED: CHLORHEXIDINE GLUCONATE 2 % 1 PACK (2 CLOTHS) TOP SCH (04:00)
== END 2017-02-02 13:40 | disposition expired | DRG 871 ==
LOC: PHED 17:27 → PHEDA 20:59 → PHICU 02-02 08:00
PROVIDERS: ADMIT Internal Medicine Critical Care Medicine; ATTEND Internal Medicine Critical Care Medicine
PROC: 5A1935Z Respiratory Ventilation, Less than 24 Consecutive Hours (ICD-10-PCS; principal; 2017-02-01)
PROC: 0BH17EZ Insertion of Endotracheal Airway into Trachea, Via Natural or Artificial Opening (ICD-10-PCS; 2017-02-01)
PROC: 0T9B70Z Drainage of Bladder with Drainage Device, Via Natural or Artificial Opening (ICD-10-PCS; 2017-02-01)
PROC: 30233N1 Transfusion of Nonautologous Red Blood Cells into Peripheral Vein, Percutaneous Approach (ICD-10-PCS; 2017-02-01)
PROC: 06HM33Z Insertion of Infusion Device into Right Femoral Vein, Percutaneous Approach (ICD-10-PCS; 2017-02-01)
PROC: 30233K1 Transfusion of Nonautologous Frozen Plasma into Peripheral Vein, Percutaneous Approach (ICD-10-PCS; 2017-02-02)
PROC: 6A550Z2 Pheresis of Platelets, Single (ICD-10-PCS; 2017-02-02)
DX: A41.9 Sepsis, unspecified organism (principal); R65.21 Severe sepsis with septic shock; J96.91 Respiratory failure, unspecified with hypoxia; K72.00 Acute and subacute hepatic failure without coma; N17.9 Acute kidney failure, unspecified; K92.0 Hematemesis; G93.40 Encephalopathy, unspecified; E87.2 Acidosis; D68.9 Coagulation defect, unspecified; Z99.11 Dependence on respirator [ventilator] status; R18.8 Other ascites; K92.2 Gastrointestinal hemorrhage, unspecified; I46.9 Cardiac arrest, cause unspecified; R55 Syncope and collapse; E83.51 Hypocalcemia; E16.2 Hypoglycemia, unspecified; F17.200 Nicotine dependence, unspecified, uncomplicated; K74.60 Unspecified cirrhosis of liver; E87.5 Hyperkalemia; F10.10 Alcohol abuse, uncomplicated; D69.6 Thrombocytopenia, unspecified; D64.89 Other specified anemias; Z66 Do not resuscitate; F12.90 Cannabis use, unspecified, uncomplicated; G40.909 Epilepsy, unspecified, not intractable, without status epilepticus
CPT/HCPCS: 31500; 36430; 36556; 36600; 36620; 51702; 70450; 71010; 76700; 80053; 80307; 81001; 82140; 82550; 82552; 82805; 83605; 83690; 83735; 84484; 85007; 85027; 85384; 85610; 85730; 86850; 86900; 86901; 86920; 86927; 87040; 87077; 87086; 87186; 87205; 92950; 93005; 94002; 94640; 94664; 96361; 96365; 96366; 96368; 99292; C9113; C9132; J0171; J0610; J0692; J1265; J1720; J1815; J2354; J2370; J2543; J3370; J3411; J3430; J7030; J7040; J7050; J7060; J7070; P9016; P9017; P9035